=== PATIENT | female | born 1945 | race Caucasian/White ===

== ENCOUNTER → 2020-09-15 10:21 | Outpatient (CLI) | payer MEDICARE, SELFPAY ==
--- NOTE | ~2020-09-15 | DEXA_ITS ---
Bone Density Report Name: Moira Cordoba Age: 75 Sex: Female Ethnicity: White Date of : 1945 Indication: monitoring treatment; height loss; history of glucocorticoids; postmenopausal Referring Provider: Rafa, Shruthi Galvan Study: Bone densitometry was performed. Exam Date: September 15, 2020 Accession number: [id number] Bone Density: Region BMD T-score Z-score Classification AP Spine (L1, L2) 1.689 6.5 8.7 Normal Femoral Neck (Left) 0.895 0.4 2.5 Normal Total Hip (Left) 1.151 1.7 3.5 Normal Femoral Neck (Right) 0.912 0.6 2.6 Normal Total Hip (Right) 1.226 2.3 4.1 Normal Total Hip Mean 1.189 2.0 3.8 Normal World Health Organization criteria for BMD impression classify patients as: Normal (T-score at or above -1.0), Osteopenia (T-score between -1.0 and -2.5), or Osteoporosis (T-score at or below -2.5). 10-year Fracture Risk: FRAX not reported because: All T-scores for Spine Total, Hip Total, Femoral Neck at or above -1.0 Treated for osteoporosis Previous Exams: Region Exam Age BMD T-score BMD Change BMD Change Date g/cm2 vs Baseline vs Previous AP Spine(L1, L2) 09/15/2020 75 1.689 6.5 0.462 0.215* 12/23/2014 69 1.474 4.5 0.246 0.246 05/03/2005 60 1.227 2.3 Total Hip(Left) 09/15/2020 75 1.151 1.7 -0.124 -0.027 12/23/2014 69 1.178 1.9 -0.097 -0.097 05/03/2005 60 1.275 2.7 Total Hip(Right) 09/15/2020 75 1.226 2.3 -0.047 -0.008 12/23/2014 69 1.234 2.4 -0.040 -0.040 05/03/2005 60 1.273 2.7 *Denotes significance at 95% confidence level, LSC for AP Spine = 0.022 g/cm2, LSC for Total Hip = 0.027 g/cm2 Clinical Information Provided by Patient: Has taken Glucocorticoids Is being treated for osteoporosis Has used the following medications: HRT (i.e. estrogen/hormone therapy), Vitamin D, Calcium, MTV, prednisone in the past Patient maximum height was 64 Menopause Age: 34 No regular weight bearing exercise Drinks caffeinated beverages Onset of menses at age 12 Number of children 3 Impression: The patient has normal bone mass. The patient has risk factors, including: history of glucocorticoid therapy. No significant bone loss was observed. Discussion: PATIENT UNDER TREATMENT WITH NO SIGNIFICANT BMD LOSS SINCE LAST EXAM. In an untreated patient, BMD typically declines with age. Anil alfaro
== END ==
PROVIDERS: PCP Internal Medicine; Visit Provider Internal Medicine
DX: Z78.0 Asymptomatic menopausal state (principal)
CPT/HCPCS: 77080

== ENCOUNTER → 2021-03-30 11:51 | Outpatient (CLI) | payer MEDICARE, SELFPAY ==
--- NOTE | ~2021-03-30 | MR_ITS ---
EXAMINATION: MR cervical spine wo/w con EXAM DATE: 03/30/2021 13:11 INDICATION: Headache, unspecified, Muscle weakness (generalized) headache, muscle weakness. Right-glenroy ed headache, left arm numbness. TECHNIQUE: Multi-sequential, multiplanar MR images of the cervical spine were obtained without contra st. Axial T2, axial T2 MERGE sequence. Sagittal T1, T2, T2 fat saturation images also obtained. Axi al T1 weighted sequence. Patient was then injected with 13 mL Multihance intravenous contrast and re imaged. Postcontrast axial and sagittal T1-weighted fat saturation sequences were obtained. There ar e no prior studies for comparison. FINDINGS: There appears be a soft tissue lipoma along the posterior aspect of the right parotid glan d, following fat signal intensity on all pulse sequences. There is mild to moderate disc disease from C4 through C7. The vertebral bodies are aligned in the AP dimension. The spinal cord signal intensit y and intrinsic morphology is normal. Cervicomedullary junction is normal in appearance. Level by level evaluation: C2-C3: Disc does not extend beyond the endplate margin. Uncovertebral joint arthropathy: None. Facet joint arthropathy: Moderate left, mild to moderate right. Neural foraminal stenosis: No stenosis. Central canal stenosis: No stenosis. C3-C4: Disc does not extend beyond the endplate margin. Uncovertebral joint arthropathy: Mild to moderate left, mild right. Facet joint arthropathy: Moderate to severe left, moderate right. Neural foraminal stenosis: Mild to moderate left. Central canal stenosis: No stenosis. C4-C5: There is a mild diffuse disc bulge. Uncovertebral joint arthropathy: Moderate bilateral. Facet joint arthropathy: Moderate to severe left, moderate right. Neural foraminal stenosis: Moderate right, mild to moderate left. Central canal stenosis: Mild. C5-C6: There is a mild diffuse disc bulge. Uncovertebral joint arthropathy: Moderate to severe left, moderate right. Facet joint arthropathy: Moderate bilateral. Neural foraminal stenosis: Moderate to severe left, mild to moderate right. Central canal stenosis: Mild. C6-C7: There is a mild diffuse disc bulge. Uncovertebral joint arthropathy: Moderate to severe left, moderate right. Facet joint arthropathy: Moderate bilateral. Neural foraminal stenosis: Moderate bilateral. Central canal stenosis: Mild. C7-T1: Disc does not extend beyond the endplate margin. Uncovertebral joint arthropathy: Mild to moderate. Facet joint arthropathy: Moderate to severe right, mild left. Neural foraminal stenosis: No stenosis. Central canal stenosis: No stenosis. IMPRESSION: Mid cervical predominant neural foraminal stenosis as detailed above. Reviewed, dictated and finalized at location B. IMPRESSION: Mid cervical predominant neural foraminal stenosis as detailed nancy anderson
--- NOTE | ~2021-03-30 | MR_ITS ---
EXAMINATION: MR brain/brain stem wo/w con DATE: 03/30/2021 13:20 INDICATION: Headache, unspecified. Generalized muscle weakness. TECHNIQUE: Magnetic resonance imaging (MRI) of the brain and brainstem was performed without and with 13 mL MultiHance intravenous contrast. Sequences included sagittal and axial T1-weighted FSE, axial diffusion-weighted FS EPI, axial T2*-weighted GRE, axial T2-weighted FLAIR Propeller, and axial T2-we ighted Propeller. Postcontrast sequences included axial and coronal T1-weighted FSE. Apparent diffusi on coefficient (ADC) maps were created. COMPARISON: None. FINDINGS: There is an empty sella . There is no intracranial hemorrhage, acute infarction, or abnorm al intracranial mass lesion. There are scattered areas of nonspecific increased T2-weighted signal in tensity in the cerebral white matter and kathy, which is within normal limits for the patient's age. 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 The ventricles are normal in size. The re is mild mucosal thickening in the paranasal sinuses. There are likely changes of ocular lens repla cement surgeries. The mastoid air cells are normal. There is a lipoma posterior to right parotid glan d. IMPRESSION: 1. No specific etiology for the patient's symptoms. Reviewed, dictated and finalized at location A.
[2021-03-30 12:25] LABS: Estimated Glomerular Filt Rate 54
== END ==
PROVIDERS: PCP Internal Medicine; Visit Provider Internal Medicine
DX: R51.9 Headache, unspecified (principal); M62.81 Muscle weakness (generalized)
CPT/HCPCS: 70553; 72156; A9577

== ENCOUNTER → 2021-10-24 12:04 | Outpatient (CLI) | payer MEDICARE, SELFPAY ==
--- NOTE | ~2021-10-24 | MR_ITS ---
EXAMINATION: MR lumbar spine wo con DATE: 10/24/2021 12:54 INDICATION: Severe low back pain. TECHNIQUE: Magnetic resonance imaging (MRI) of the lumbar spine was performed without intravenous con trast. Sequences included sagittal T2-weighted FSE, sagittal T2-weighted FS FSE, sagittal T1-weighted FSE, and axial T2-weighted FSE. COMPARISON: CT abdomen and pelvis 11/29/2015 FINDINGS: There is 7 degrees dextrocurvature of lumbar spine. There is 3 mm retrolisthesis of T12 on L1, L1 on L2, L3 on L4, L4 on L5, and L5 on S1. Vertebral body heights are normal. There is severely decreased disc height from T9-T10 through L5-S1 with endplate remodeling. The distal spinal cord sign al intensity is normal. The conus medullaris is at L1-L2. 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 The following disc levels are specifically discussed: L1-L2: The disc is bulging. There is mild bilateral facet joint osteoarthritis. There is mild bilater al neural foraminal stenosis. There is mild central canal stenosis. L2-L3: The disc is bulging. There is severe right and mild left facet joint osteoarthritis. There is mild bilateral neural foraminal stenosis. There is mild central canal stenosis. L3-L4: The disc is bulging. There is severe bilateral facet joint osteoarthritis. There is mild right and moderate left neural foraminal stenosis. There is mild central canal stenosis. L4-L5: The disc is bulging. There is moderate right and mild left facet joint osteoarthritis. There i s moderate bilateral neural foraminal stenosis. There is mild central canal stenosis. L5-S1: The disc is bulging. There is mild bilateral facet joint osteoarthritis. There is moderate camron ateral neural foraminal stenosis. There is mild central canal stenosis. IMPRESSION: 1. Severe lumbar spondylosis. Reviewed, dictated and finalized at location B.
== END ==
PROVIDERS: PCP Internal Medicine; Visit Provider Orthopaedic Surgery
DX: M79.89 Other specified soft tissue disorders (principal); M47.896 Other spondylosis, lumbar region
CPT/HCPCS: 72148

== ENCOUNTER 2021-11-21 01:46 | Day surgery (SDC) | payer MEDICARE, SELFPAY ==
[2021-11-12 10:19] VITALS: BMI 29.2
--- NOTE | 2021-11-20 17:32 | PM.HPGS ---
History of Present Illness History of Present Illness Consent: Risks, benefits, and alternatives have been discussed and questions answered. Patient agrees to proceed with procedure. Chief complaint: hx of colon polyps Narrative: Moira Cordoba is a 76 year old female Who is here for colon cancer screening. She has a history of polyps. She had 2 adenomas removed about 6 years ago. Review of Systems Review of Systems: All systems reviewed & are unremarkable except as noted in HPI and below PMFSH Social History Social History Smoking status: Never smoker Alcohol intake: current Alcohol use details: 3 drinks monthly Living arrangements: with family Spiritual care concerns: No Meds Home Medications and Allergies Home Medications Medication Instructions Recorded Confirmed Type alprazolam 0.25 mg PO BID PRN 11/12/21 11/12/21 History amlodipine 2.5 mg PO DAILY 11/12/21 11/12/21 History ascorbic acid (vitamin C) 500 mg PO DAILY 11/12/21 11/12/21 History buspirone 5 mg PO BID 11/12/21 11/12/21 History calcium 2,000 mg PO DAILY 11/12/21 11/12/21 History duloxetine 60 mg PO DAILY 11/12/21 11/12/21 History estradiol 1 mg PO DAILY 11/12/21 11/12/21 History hydrocodone-acetaminophen 1 - 2 tablet PO Q6H PRN 11/12/21 11/12/21 History losartan 100 mg PO DAILY 11/12/21 11/12/21 History orozllxk-lum-gdhl-vitamin K [Adult 1 tablet PO DAILY 11/12/21 11/12/21 History Multivitamin with Iron] prasterone (dhea) [DHEA] 50 mg PO DAILY 11/12/21 11/12/21 History vitamin B complex [B Complex] 1 cap PO DAILY 11/12/21 11/12/21 History zinc 50 mg PO DAILY 11/12/21 11/12/21 History zolpidem 5 mg PO HS 11/12/21 11/12/21 History Allergies Allergy/AdvReac Type Severity Reaction Status Date / Time Sulfa (Sulfonamide Allergy Unknown Anaphylactic Verified 11/21/21 07:41 Antibiotics) Shock Exam Const: General: alert Orientation/consciousness: patient oriented x3 Resp: Auscultation: clear to auscultation bilaterally Cardio: Rhythm: regular rhythm GI: GI Palp: Yes Soft to palpation and No Tenderness to palpation present (GI) Neuro: General: patient oriented x3 Assessment and Plan Assessment and plan (1) Colon cancer screening: Code(s): Z12.11 - Encounter for screening for malignant neoplasm of colon Status: Acute Assessment and Plan: Colonoscopy with possible biopsy or polypectomy or cautery or injection of substances.
[2021-11-21 07:42] VITALS: BP 160/75; PULSE 83; RESP 18; TEMP 36.3; O2SAT 100; BMI 28.4
[2021-11-21] MEDS: LACTATED RINGERS 1,000 ML 150 ML IV CONT (07:56)
--- NOTE | 2021-11-21 08:35 | WPDANESEPPF ---
Anes - Initial Pre Proc Eval Procedure: Operation Date: 11/21/21 09:00 Proposed Procedures p Screening Colonoscopy - Howie Junior MD Date/Time: 11/21/21 08:35 Surgeon: Howie Junior MD Pre Op Diagnosis: hx of colon polyps Patient Data Age: 76 Gender: F Height: 1.52 m Weight: 66 kg Last Vital Signs Temp 97.3 F L 11/21/21 07:42 Pulse 83 11/21/21 07:42 Resp 18 11/21/21 07:42 BP 160/75 H 11/21/21 07:42 Pulse Ox 100 11/21/21 07:42 Allergies Allergy/AdvReac Type Severity Reaction Status Date / Time Sulfa (Sulfonamide Allergy Unknown Anaphylactic Verified 11/21/21 07:41 Antibiotics) Shock Home Medications Medication Instructions Recorded Confirmed Type alprazolam 0.25 mg PO BID PRN 11/12/21 11/12/21 History amlodipine 2.5 mg PO DAILY 11/12/21 11/12/21 History ascorbic acid (vitamin C) 500 mg PO DAILY 11/12/21 11/12/21 History buspirone 5 mg PO BID 11/12/21 11/12/21 History calcium 2,000 mg PO DAILY 11/12/21 11/12/21 History duloxetine 60 mg PO DAILY 11/12/21 11/12/21 History estradiol 1 mg PO DAILY 11/12/21 11/12/21 History hydrocodone-acetaminophen 1 - 2 tablet PO Q6H PRN 11/12/21 11/12/21 History losartan 100 mg PO DAILY 11/12/21 11/12/21 History ieyntkht-hej-dzom-vitamin K [Adult 1 tablet PO DAILY 11/12/21 11/12/21 History Multivitamin with Iron] prasterone (dhea) [DHEA] 50 mg PO DAILY 11/12/21 11/12/21 History vitamin B complex [B Complex] 1 cap PO DAILY 11/12/21 11/12/21 History zinc 50 mg PO DAILY 11/12/21 11/12/21 History zolpidem 5 mg PO HS 11/12/21 11/12/21 History Patient hx anesthesia problems: none Family hx anesthesia problems: none Results Review: All pre-operative results and documents have been reviewed as part of the pre-operative evaluation. PMFSH Social History Social History Smoking status: Never smoker Alcohol intake: current Alcohol use details: 3 drinks monthly Living arrangements: with family Spiritual care concerns: No Anes - Eval Final PreProcedure Day of Procedure 11/21/21 08:35 Patient weight: normal Heart: regular rate and rhythm Lungs: clear to auscultation Airway: Mallampati scale class II Neurological: alert and oriented Last oral intake: >/= 8 hours ASA classification: III Emergent: no Anesthetic plan: proceed Anesthesia type and monitoring: general GIVS and standard monitoring Results Review: All pre-operative results and documents have been reviewed as part of the pre-operative evaluation. Informed Consent: The patient's anesthetic plan and its attendant risks and benefits were discussed with the patient/family/POA. Questions were solicited and answers provided to the satisfaction of the patient/family/POA.
[2021-11-21] MEDS: SIMETHICONE ORAL SUSPENSION 20 MG/0.3 ML 30 ML BOTTLE 0.6 ML IRRIGATION (08:58)
[2021-11-21 09:14] VITALS: BP 134/73; PULSE 64; RESP 18; O2SAT 93
[2021-11-21 09:24] VITALS: BP 149/73; PULSE 58; RESP 16; O2SAT 95
[2021-11-21 09:34] VITALS: BP 161/84; PULSE 62; RESP 16; O2SAT 95
== END 2021-11-21 09:46 | disposition home or self-care (01) ==
PROVIDERS: PCP Internal Medicine; Visit Provider Internal Medicine Gastroenterology
PROC: 0DJD8ZZ Inspection of Lower Intestinal Tract, Via Natural or Artificial Opening Endoscopic (ICD-10-PCS; CPT 45378; principal; 2021-11-21 09:00)
DX: Z12.11 Encounter for screening for malignant neoplasm of colon (principal); K57.30 Diverticulosis of large intestine without perforation or abscess without bleeding; D12.2 Benign neoplasm of ascending colon; D12.4 Benign neoplasm of descending colon; Z80.0 Family history of malignant neoplasm of digestive organs
CPT/HCPCS: 45385; 88305; J2704; J7120

== ENCOUNTER 2024-08-13 08:46 | Outpatient (CLI) | payer MEDICARE, SELFPAY ==
--- NOTE | 2024-08-13 | ECHO_ITS ---
Patient Info Name: Moira Cordoba Age: 79 years : 1945 Gender: Female Ht: 60 in Wt: 143 lbs BSA: 1.68 m2 HR: 71 bpm BP: 161 / 84 mmHg Heart Rhythm: Sinus Rhythm Technical Quality: Good Exam Date: 08/13/2024 9:07 AM Exam Location: Echo Lab Patient Status: Outpatient Admit Date: 08/13/2024 Staff Ordering Physician: Rafa, Shruthi Galvan MD Heel Layer: Ellie Valentin RDCS Attending Provider: Rafa, Shruthi Galvan MD Referring Physician: Rafa ZHANG; Exam Type: CA echo doppler color flow Study Info Indications - Edema Complete two-dimensional, color flow and Doppler transthoracic echocardiogram is performed. Summary 1. Complete two-dimensional, color flow and Doppler transthoracic echocardiogram is performed. 2. Left ventricular chamber dimension is normal. 3. Left ventricular systolic function is normal, estimated at 65-70%. 4. The left ventricular diastolic function is abnormal. 5. E/e' 19 is elevated. 6. Left atrial chamber dimension is moderately enlarged. 7. There is mild to moderate mitral valve regurgitation. 8. There is mild tricuspid valve regurgitation. 9. Moderate pulmonary hypertension, estimated pulmonary arterial systolic pressure is 50 mmHg. Left Ventricle E/e' 19 is elevated. Left ventricular chamber dimension is normal. Left ventricular systolic function is normal, estimated at 65-70%. The left ventricular diastolic function is abnormal. Right Ventricle Right ventricular systolic function is normal and with normal TAPSE 2.5 cm. Right ventricular chamber dimension is normal. Left Atria Left atrial chamber dimension is moderately enlarged. Right Atria Right atrial chamber dimension is normal. Aortic Valve The aortic valve is trileaflet. There is no aortic valve stenosis. There is no aortic valve regurgitation. Pulmonic Valve There is no pulmonic regurgitation. Mitral Valve There is no mitral valve stenosis. There is mild to moderate mitral valve regurgitation. Tricuspid Valve There is mild tricuspid valve regurgitation. Moderate pulmonary hypertension, estimated pulmonary arterial systolic pressure is 50 mmHg. Pericardium/Pleural There is no pericardial effusion. Inferior Vena Cava Normal inferior vena cava with >50% collapse upon inspiration consistent with normal right atrial pressure, 5 mmHg. Aorta The aortic root size at the sinus of Valsalva is normal. Left Ventricular Outflow Tract Name Value Normal LVOT 2D LVOT Diameter 1.8 cm LVOT Doppler LVOT Peak Gradient 5 mmHg LVOT Mean Gradient 3 mmHg LVOT VTI 27 cm LVOT VTI/AV VTI Ratio 0.7 LVOT Stroke Volume 70 ml LVOT CO 4.4 l/min LVOT CI 2.6 l/min/m2 Pulmonic Valve Name Value Normal PV Doppler PV Peak Gradient 3 mmHg Mitral Valve Name Value Normal MV Doppler MV Peak Gradient 9 mmHg MV Mean Gradient 3 mmHg MV Decel Jewell 581 cm/s2 MV PHT 66 ms MV Area (PHT) 3.3 cm2 4.0-5.0 MV Area (Cont Eq VTI) 1.5 cm2 MV Regurgitation Doppler MR Peak Gradient 96 mmHg MV Diastolic Function MV E Peak Velocity 132 cm/s MV A Peak Velocity 109 cm/s MV E/A 1.2 MV Decel Time 227 ms MV Annular TDI MV E/e' (Septal) 19.9 <=8.0 MV E/e' (Lateral) 19.1 <=8.0 MV E/e' (Average) 19.5 Tricuspid Valve Name Value Normal TV Regurgitation Doppler TR Peak Velocity 337 cm/s TR Peak Gradient 45 mmHg Estimated PAP/RSVP RA Pressure 5 mmHg <=5 PA Systolic Pressure 50 mmHg <36 RV Systolic Pressure 50 mmHg <36 Aortic Valve Name Value Normal AV Doppler AV Peak Velocity 165 cm/s AV Peak Gradient 11 mmHg AV Mean Gradient 6 mmHg AV VTI 38 cm AV Area (Cont Eq VTI) 1.9 cm2 >=3.0 AV Area (Cont Eq Jhon) 1.8 cm2 AV Regurgitation 2D LVOT Area 2.6 cm2 Ventricles Name Value Normal LV Dimensions 2D/MM IVS Diastolic Thickness (2D) 0.6 cm 0.6-1.0 LVID Diastole (2D) 4.8 cm 3.8-5.2 LVIW Diastolic Thickness (2D) 0.7 cm 0.6-0.9 LVID Systole (2D) 3.4 cm 2.2-3.5 LVOT Diameter 1.8 cm LV Mass (2D Cubed) 99.53 g 67.00-162.00 LV Mass Index (2D Cubed) 59 g/m2 43-95 Relative Wall Thickness (2D) 0.31 LV Fractional Shortening/Ejection Fraction 2D/MM LV Fractional Shortening (2D) 28 % 27-45 LV EF (2D Teicholz) 55 % 54-74 LV Diastolic Volume (4C MOD) 77 ml LV EF (4C MOD) 61 % LV Diastolic Volume (2C MOD) 70 ml LV EF (2C MOD) 61 % LV Diastolic Volume (BP MOD) 74 ml 46-106 LV Diastolic Volume Index (BP MOD) 44 ml/m2 29-61 LV Systolic Volume (BP MOD) 30 ml 14-42 LV Systolic Volume Index (BP MOD) 18 ml/m2 8-24 LV EF (BP MOD) 60 % 54-74 LV Diastolic Length (4C) 7.1 cm LV Systolic Length (4C) 5.8 cm LV Stroke Volume (4C MOD) 47 ml LV CO (BP MOD) 2.9 l/min LV CI (BP MOD) 1.7 l/min/m2 Atria Name Value Normal LA Dimensions LA Volume (4C A-L) 58 ml LA Volume (BP A-L) 67 ml RA Dimensions RA Area (4C) 16.2 cm2 <=18.0 Report Signatures
--- OUTSIDE RECORDS SUMMARY | 2024-08-13 08:58 | XMS_ITS | Data Portability ---
Author Organization [place] [facility], Main Office Address [address] [place] [address] Care Team Providers Care [employer]oles[employer] Merchant Name Role Phone ANJUM PINZON Primary Care Provider [phone] ANJUM PINZON Referring Provider Assessment Encounter Date Assessment Date Assessment LastModified by Organization Details LastModified Time 10/11/2022 10/11/2022 HPI: Patient returns. She is here for cortisone injections in both her knees. Last injections were in last year. Do very well for her. She has moderate medial compartment arthritis in both knees. Physical exam: 77-year-old female very alert pleasant. She has just minimal effusions in both knees. Range of motion is from 0-135 degrees bilaterally. Mild tenderness over both medial joint lines to palpation. No increased swelling in either lower extremity. No lateral joint line tenderness in either knee. ChloraPrep was used on skin 20 mg Kenalog and 3 cc of 0.5% ropivacaine was injected into both knees. Risk infection discussed. Impression: 77-year-old female who has moderate medial compartment osteoarthritis in both knees. She continues to good relief from injections from time to time. We will see her back as needed. Not available 10/11/2022 16:02:23 02/03/2023 02/03/2023 HPI: Patient returns. She is here for cortisone injections into both her knees. Last shots were little more than 3 months ago. They do work very well for her and she gets almost 3 months of good relief. She is a very active 77-year-old and wishes to continue with the injections this point. She does not wish to discuss any surgical options on her knees. Physical exam: 77-year-old female alert pleasant. She walks well without assistance. She has mild effusions in both knees. Range motion on the right is 5-130 on left it is 10-130. Mild tenderness over both medial joint lines to palpation. No increased swelling in either lower extremity. After ChloraPrep was used on skin 20 mg Kenalog and 3 cc of 0.5% ropivacaine was injected into both knees. Risk infection discussed. Impression: 77-year-old female has moderately severe medial compartment osteoarthritis in both knees. She continues get excellent relief from the injections. We will see her back in 3 months repeat injection Not available 02/03/2023 15:02:58 04/28/2023 04/28/2023 HPI: Patient returns. She is here for cortisone injection in both of her knees. Last shots were 3 months ago. She has moderately severe medial osteoarthritis in both knees. She got good relief up until about 2 weeks ago. She is getting ready to go on cruise and leaving later this week. She wished to have additional injections today. Physical exam: 78-year-old female very alert pleasant. She walks well. She has mild effusions in both knees. Range of motion is from 12-120 degrees bilaterally. Mild tenderness over both medial joint lines. After ChloraPrep was used on skin 20 mg Kenalog and 3 cc of 0.5% ropivacaine was injected into both knees. Risk infection discussed. Impression: 78-year-old female who has moderately severe medial compartment osteoarthritis in both knees. Shots continue to work well for her. We will see her 3 months. Not available 04/28/2023 15:17:01 08/01/2023 08/01/2023 HPI: Patient returns. She is here for cortisone injections into both of her knees. Last shot for about 4 months ago. She does get good relief. She has moderately severe medial compartment osteoarthritis of both knees. She wishes to continue with injections. Physical exam: Patient has mild effusions in both knees. Range of motion is from 0 135 bilaterally. Now her tenderness over the medial joint lines in both knees. No increased swelling in the extremity. that ChloraPrep was used on skin 20 mg Kenalog and 3 cc of 0.5% ropivacaine was injected into both knees. Impression: Patient has moderately severe medial compartment osteoarthritis in both knees. cortisone injections work well for her. We will see her back as needed. Not available 08/01/2023 16:12:20 10/30/2023 10/30/2023 The patient has moderately severe primary osteoarthritis both knees left worse than right as described. Under sterile conditions I injected both knee joints in the office today with 4 cc 0.5% bupivacaine and 20 mg of Kenalog each. The patient tolerated the procedures well. We will see her back as needed we can do this again in 3 months if necessary she voiced understanding agrees above plan she will continue with current conservative measures call for any further problems difficulties or questions. [email or web address] Not available 10/30/2023 14:25:16 Plan of Treatment Reminders Order Date Submit Date Provider Last Modified By Organization Details Last Modified Time Details Appointments None recorded. Lab None recorded. Referral None recorded. Procedures injection/a spiration joint/bursa (PROC) - in office procedure, administere d by provider 2022 023 In-Office Order, Internal Use Only DO Not Attach Compendium DO Not Attach Compendium, Do Not Delete/merge, [id number] 16:01:15 injection/a spiration joint/bursa (PROC) - in office procedure, administere d by provider 2022 023 [email or web address] In-Office Order, Internal Use Only DO Not Attach Compendium DO Not Attach Compendium, Do Not Delete/merge, [id number] 14:33:16 injection/a spiration joint/bursa (PROC) - in office procedure, administere d by provider 2022 023 [email or web address] In-Office Order, Internal Use Only DO Not Attach Compendium DO Not Attach Compendium, Do Not Delete/merge, [id number] 14:38:07 injection/a spiration joint/bursa (PROC) - in office procedure, administere d by provider 2023 024 In-Office Order, Internal Use Only DO Not Attach Compendium DO Not Attach Compendium, Do Not Delete/merge, [id number] 14:10:32 injection/a spiration joint/bursa (PROC) 2023 024 [email or web address] In-Office Order, Internal Use Only DO Not Attach Compendium DO Not Attach Compendium, Do Not Delete/merge, [id number] 13:52:57 Surgeries None recorded. Imaging XR, knee 2022 023 [email or web address] [facility] [place], [address], [place], [address], 19:19:34 Medication Orders Kenalog 10 mg/mL suspension for injection [email or web address] [facility], [address] [place], [place], [id number], 16:01:15 ropivacaine (PF) 5 mg/mL (0.5 %) injection solution [address] [facility]186, [address] [place], [place], [id number], 3 14:35:46 Kenalog 10 mg/mL suspension for injection [address] [facility]54467, [address] [place], [id number], 3 19:19:34 ropivacaine (PF) 5 mg/mL (0.5 %) injection solution [address] [facility]70757, [address] [place], [id number], 3 14:35:46 Kenalog 10 mg/mL suspension for injection [address] [facility]46475, [address] [place], [place], [id number], 3 17:10:31 ropivacaine (PF) 5 mg/mL (0.5 %) injection solution 2022 023 [email or web address] [facility] #98453, [address], [place], [place], [id number], 3 17:10:31 Kenalog 10 mg/mL suspension for injection [address] [facility]13518, [address], [place], [place], [id number], 4 16:25:06 ropivacaine (PF) 5 mg/mL (0.5 %) injection solution 2023 024 [email or web address]267, [address] [place], [place], [id number], 4 16:25:06 bupivacaine HCl 0.5 % (5 mg/mL) injection solution 2023 024 [email or web address] [facility] #39080, [address] [place], [place], [id number], 4 15:41:25 Kenalog 10 mg/mL suspension for injection 2023 024 [email or web address] [facility] #18772, [address], [place], [id number], 4 15:41:25 Patient TargetsNo targets recorded. Patient InstructionsNo instructions recorded. Reason for Referral None Reported. Results Created Date Observation Date Name Description Value Unit Range Abnormal Flag Note LastModifiedBy Organization Detail LastModifiedTime 02/04/20 23 XR, knee No observ ation record ed. [facility] [place] [address], [place], [address], 02/03/2023 15:01:49 Result Notes None recorded. Problems Name Problem SNOMED Code Status Onset Date Resolution Date Notes Provider Name and Address Organization Details Recorded Time Localized, primary osteoarthr itis of the ankle and/or foot 707144211 Active 2021 Not Available [facility] 3 08:08:43 Pain in lumbar spine 821827960 Active Not Available [facility] 3 08:08:43 Menopause present 954704927 Active Not Available [facility] 3 08:08:43 Enthesopat hy of hip region 32152276 Active Not Available [facility] 3 08:08:43 Localized osteoarthr osis 74305032 Active Not Available [facility] 3 08:08:43 Vitamin D deficiency 20865777 Active Not Available [facility] 3 08:08:43 Depressive disorder 90861229 Active Not Available [facility] 3 08:08:44 Arthritis 4741450 Active Not Available [facility] 3 08:08:44 Hypertensi ve disorder 14789435 Active Not Available [facility] 3 08:08:44 Osteoarthr itis 479830550 Active 2021 Not Available [facility] 3 08:08:44 Foot pain 51324670 Active Not Available [facility] 3 08:08:44 Dysuria 56893922 Active Not Available [facility] 3 08:08:44 Cough 52073783 Active Not Available [facility] 3 08:08:44 Hyperlipid emia 38933130 Active Not Available [facility] 3 08:08:44 Diarrhea 13046131 Active Not Available [facility] 3 08:08:44 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 Not Available [facility] 3 08:08:44 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 Not Available [facility] 3 08:08:44 Neck pain 49980040 Active Not Available [facility] 3 08:08:44 Pernicious anemia 83138935 Active Not Available [facility] 3 08:08:44 Fatigue 73018795 Active Not Available [facility] 3 08:08:45 Bilateral osteoarthr itis of knees 8658190763575 07 Active 2022 Suly Horton, RMA null, [facility] 3 14:31:31 Pain of bilateral knee joints 9426620748732 04 Active 2023 Melly Dilma [employer] APPRENTICE null, [facility] 4 13:51:10 Problem Notes None recorded. Procedures Surgical History None recorded. Imaging Results Imaging Date Name Status LastModified by Organiz ation Details LastModified Time 02/03/2023 XR, knee completed [facility] [place] [address], [place], [address], 02/03/2023 15:01:49 Procedure Notes None recorded. Medical Equipment None Reported. Allergies Allergen ID Allergen Name Allergen Category Reaction Reaction Severity Criticality Documentation Date Start Date Code Code System Note Provider Name and Address Organization Details Recorded Time Substance with sulfonami de structure and antibacte rial mechanism of action (substanc e) medicatio n anaphylax is Not available Not available 09/04/2022 [id number] SNOMED Not Available [facility] 3 08:13:35 Medications Name Sig Start Date Stop Date Status Note LastModified by Organization Details LastModified Time losartan 50 mg tablet TAKE 1 AND 1/2 TABLETS BY MOUTH EVERY DAY active Not Available Not Available No t Available buspirone 5 mg tablet TAKE 1 TABLET BY MOUTH TWICE DAILY 04/28 completed Not Available Not Available Not Available clindamyc in HCl 300 mg capsule TAKE 1 CAPSULE BY MOUTH EVERY 8 HOURS FOR 10 DAYS active Not Available Not Available No t Available Vivelle-D ot 0.1 mg/24 hr transderm al patch MARICARMEN 1 PATCH TWO TIMES A WEEK active Not Available Not Available No t Available hydrocodo ne 5 mg-acetam inophen 325 mg tablet TAKE 1 TO 2 TABLETS BY MOUTH DAILY NEEDED FOR PAIN active Not Available Not Available No t Available minocycli ne 100 mg capsule TAKE 1 CAPSULE BY MOUTH TWICE DAILY FOR 7 DAYS 04/28 completed Not Available Not Available Not Available DHEA 50 mg capsule Take by oral route. 2020 active Not Available Not Available Not Avai lable bupivacai ne HCl 0.5 % (5 mg/mL) injection solution Take 40 mg by injectio n route. 2023 active Not Available Not Available Not Avai lable clobetaso l 0.05 % topical cream APPLY AND RUB IN WELL TO INVOLVED AREAS OF RIGHT HAND BID UNTIL CLEAR 12/19 completed Not Available Not Available Not Available oxycodone 5 mg/5 mL oral solution active Not Available Not Available Not Available diphenoxy late-atro pine 2.5 mg-0.025 mg tablet Take 2 tablets 4 times a day by oral route. 2020 active Not Available Not Available Not Avai lable amlodipin e 2.5 mg tablet TAKE 1 TABLET BY MOUTH EVERY DAY 04/28 completed Not Available Not Available Not Available amlodipin e 5 mg tablet TAKE 1 TABLET BY MOUTH EVERY DAY active Not Available Not Available No t Available tramadol 50 mg tablet TAKE 1 TABLET BY MOUTH EVERY 6 HOURS WITH FOOD NEEDED FOR PAIN 04/28 completed Not Available Not Available Not Available Guiatuss AC 10 mg-100 mg/5 mL oral liquid Take 5 mL every 4-6 hours by oral route as needed for 10 days. 10/04 completed Not Available Not Available Not Available alprazola m 0.25 mg tablet TAKE 1 TABLET BY MOUTH TWICE DAILY NEEDED FOR ANXIETY active Not Available Not Available No t Available prednisol one acetate 1 % eye drops,adrianne pension 12/19 completed Not Available Not Available Not Available estradiol 1 mg tablet TAKE 1 TABLET BY MOUTH DAILY active Not Available Not Available No t Available Kenalog 10 mg/mL suspensio n for injection Take 40 mg by injectio n route. 2023 active [facility]: [phone] 4-20 Not Available Not Available Not Available benzonata te 100 mg capsule TAKE 1 CAPSULE BY MOUTH EVERY 8 HOURS NEEDED active Not Available Not Available No t Available cyanocoba alexa (vit B-12) 1,000 mcg/mL injection solution INJECT 2 CC EVERY MONTH 12/19 completed Not Available Not Available Not Available triamcino lone acetonide 0.1 % topical ointment RUB IN WELL TWICE DAILY TO INVOLVED AREAS OF BODY UNTIL CLEAR 04/28 completed Not Available Not Available Not Available buspirone 10 mg tablet TAKE 1 TABLET BY MOUTH TWICE DAILY active Not Available Not Available No t Available lidocaine 5 % topical patch APPLY 1 PATCH DIRECTED EVERY DAY 12/19 completed Not Available Not Available Not Available omeprazol e 20 mg capsule,d elayed release TAKE 1 CAPSULE BY MOUTH EVERY DAY active Not Available Not Available No t Available hydroxyzi ne HCl 25 mg tablet Take 1 tablet 3 times a day by oral route. 2020 active Not Available Not Available Not Avai lable hydrocodo ne 5 mg-acetam inophen 500 mg tablet TAKE 1 TABLET BY MOUTH EVERY DAY NEEDED FOR BACK PAIN active Not Available Not Available No t Available mupirocin 2 % topical ointment 12/19 completed Not Available Not Available Not Available zolpidem 5 mg tablet TAKE 1 TABLET BY MOUTH EVERY DAY AT BEDTIME active Not Available Not Available No t Available gabapenti n 100 mg capsule TAKE 1 CAPSULE BY MOUTH THREE TIMES DAILY 04/28 completed Not Available Not Available Not Available estradiol 0.5 mg tablet TAKE 1/2 TABLET VAGINALL Y WEEKLY active Not Available Not Available No t Available ergocalci ferol (vitamin D2) 1,250 mcg (50,000 unit) capsule TK ONE C PO Q WEEK 12/19 completed Not Available Not Available Not Available clobetaso l 0.05 % topical ointment 12/19 completed Not Available Not Available Not Available estradiol 0.01% (0.1 mg/gram) vaginal cream INSERT 1 GRAM VAGINALL Y TWICE A WEEK AT BEDTIME 04/28 completed Not Available Not Available Not Available zolpidem 10 mg tablet TAKE 1 TABLET BY MOUTH EVERY DAY AT BEDTIME NEEDED active Not Available Not Available No t Available methylpre dnisolone 4 mg tablets in a dose pack FOLLOW PACKAGE DIRECTIO NS 04/28 completed Not Available Not Available Not Available albuterol sulfate HFA 90 mcg/actua tion aerosol inhaler INHALE 2 PUFFS BY MOUTH EVERY 4 HOURS NEEDED 04/28 completed Not Available Not Available Not Available ondansetr on 4 mg disintegr ating tablet active Not Available Not Available Not Available losartan 100 mg tablet TAKE 1 TABLET BY MOUTH EVERY DAY active Not Available Not Available No t Available amoxicill in 875 mg-potass ium clavulana te 125 mg tablet TAKE 1 TABLET BY MOUTH TWICE DAILY UNTIL GONE 04/28 completed Not Available Not Available Not Available Premarin 0.625 mg/gram vaginal cream apply prn 12/19 completed Not Available Not Available Not Available Premarin 0.625 mg tablet Take 1 tablet every day by oral route. 01/10 completed Not Available Not Available Not Available duloxetin e 60 mg capsule,d elayed release TAKE 1 CAPSULE BY MOUTH EVERY DAY active Not Available Not Available No t Available B Complex 2020 active Not Available Not Available Not Avai lable Daily Multivita min with Iron 2020 active Not Available Not Available Not Avai lable calcium citrate-v itamin D3 200 mg-200 unit tablet Take by oral route. 2020 active Not Available Not Available Not Avai lable lidocaine (PF) 10 mg/mL (1 %) injection solution In office injectio n administ ered by the provider 04/28 completed [facility]: 0409-427 12-21 Not Available Not Available Not Available lidocaine (PF) 20 mg/mL (2 %) injection solution In office injectio n administ ered by the provider 04/28 completed Not Available Not Available Not Available lidocaine (PF) 5 mg/mL (0.5 %) injection solution In office injectio n administ ered by the provider 04/28 completed Not Available Not Available Not Available BD Integra Syringe 3 mL 25 gauge x 1 U WITH B12 10/04 completed Not Available Not Available Not Available Zostavax (PF) 19,400 unit/0.65 mL subcutane ous suspensio n 12/19 completed Not Available Not Available Not Available hydrochlo rothiazid e 12.5 mg tablet TAKE 1 TABLET BY MOUTH EVERY DAY active Not Available Not Available No t Available ropivacai ne (PF) 5 mg/mL (0.5 %) injection solution in office 2023 active Not Available Not Available Not Avai lable lidocaine 5 % topical ointment Apply 1 applicat ion twice a day by topical route as directed for 30 days. active would rather have patches Not Available Not Available Not Available Fluvirin (PF) 45 mcg (15 mcg x 3)/0.5 mL intramusc ular syringe ADM 0.5ML IM UTD 04/28 completed Not Available Not Available Not Available Lagevrio 200 mg capsule (EUA) TAKE 4 CAPSULES BY MOUTH EVERY 12 HOURS FOR 5 DAYS 04/28 completed Not Available Not Available Not Available Miebo (PF) 100 % eye drops INSTILL ONE DROP INTO EACH EYE FOUR TIMES DAILY active Not Available Not Available No t Available Vitals Date Recorded Body height Provider Name an d Address Organization Details Last Updated DateTime 10/11/2022 152.4 [facility] [employer] [facility] 10/11/2022 14:48:57 Date Recorded Body height Body mass index (BMI) Body weight Provider Name and Address Organization Details Last Updated DateTime 02/03/2023 149.86 cm 30.5 kg/m2 55997.45 g Suly Clifford [facility] [employer] [facility] 02/03/2023 14:43:44 Date Recorded Body height Provider Name an d Address Organization Details Last Updated DateTime 04/28/2023 149.86 cm [facility] [employer] [facility] 04/28/2023 14:33:33 Date Recorded Body height Provider Name an d Address Organization Details Last Updated DateTime 08/01/2023 149.86 cm Suly Horton [facility] [employer] [facility] 08/01/2023 14:08:51 Date Recorded Body height Body mass index (BMI) Body weight Provider Name and Address Organization Details Last Updated DateTime 10/30/2023 144.78 cm 30.3 kg/m2 25128.93 g Melly Perera [facility] [employer] [facility] [employer] [facility] 10/30/2023 13:50:24 Social History Question Answer Notes LastModified by Organizat ion Details LastModified Time Tobacco Smoking Status Never Smoker Not Available [employer] 09/04/2022 08:06:11 What Is Your Level Of Alcohol Consumption? 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 Mental Status None recorded. Family History Relationship Description Onset Age of this Age Resolved Age Notes LastModified by Organization Details LastModified Time Father Family history of malignant neoplasm [id number] Not available 09/04/2022 08:06:19 Father Hypertensive disorder [id number] Not available 09/04/2022 08:06:19 Notes:mom's side arthritis Medical History Condition Response BLINDNESS N KIDNEY STONES N MRSA N CARPAL TUNNEL SYNDROME N LUNG DISEASE/DISORDER N HISTORY OF DRUG ABUSE N RADIATION / CHEMOTHERAPY N COPD N SPORTS INJURY N ANKLE PAIN N BLOOD DISEASES N SCHIZOPHRENIA N SHOULDER PAIN N DEPRESSION (INCLUDING POST ) N BOWEL PROBLEMS N STROKE/TIA N ULCERS N KNEE PAIN N BENIGN PROSTATIC HYPERPLASIA N OBESITY N GERD/NAUSEA N ANEURYSM N URINARY/BLADDER/KIDNEY PROBLEMS N CORONARY ARTERY DISEASE (CAD) N ADDICTION CONCERNS N USE OF BLOOD THINNERS N SKIN PROBLEMS N EMPHYSEMA N MUSCLE,JOINT OR BONE PROBLEMS N DVT N STOMACH ULCERS N BLOOD CLOTS N USE OF NSAIDS Y CONCUSSION OR SPINAL TRAUMA N NEUROPATHY N AIDS/HIV N FRACTURES N HYPERTENSION Y ELBOW PAIN N TOURETTE'S N Metal allergy N ANXIETY DISORDER N BLOOD TRANSFUSION N ANEMIA/BLOOD DISORDER N BIPOLAR DISORDER N BRONCHITIS N OSTEOARTHRITIS N TUBERCULOSIS N FOOT PROBLEM N HEART VALVE DISORDERS N SOFT TISSUE INJURY N ALLERGIES/HAYFEVER N INFECTIOUS DISEASE N HEART ARRHYTHMIA N INSOMNIA N RHEUMATOID ARTHRITIS N HIGH CHOLESTEROL / HYPERLIPIDEMIA N EDEMA N CHRONIC PAIN SYNDROME N CAROTID BLOCKAGE N BACK / NECK PROBLEMS N HAVE YOU BEEN HOSPITALIZED OR SEEN IN [facility] IN THE PAST YEAR ? N BURSITIS N HERNIATED DISC N DIALYSIS N FIBROMYALGIA N OSTEOPOROSIS N ARTHRITIS Y NO SIGNIFICANT PAST MEDICAL HISTORY N PERIPHERAL NEUROPATHY N DIABETES, TYPE N HEARTBURN / REFLUX N HEPATITIS / LIVER DISEASE N GOUT N SLEEP DISORDER N ALZHEIMER'S DISEASE N HERPES N SEIZURES/EPILEPSY N HEADACHES/MIGRAINES N VASCULAR DISEASE N HIP PAIN N Blood Disorder N DIZZINESS N HEAD TRAUMA OR INJURY N HEART DISEASE/HEART PROBLEMS N MULTIPLE SCLEROSIS N CARDIAC ARRHYTHMIA N CANCER: SPECIFY Y ANESTHESIA COMPLICATIONS N ATRIAL FIBRILLATION N AUTOIMMUNE DISEASE N Gynecological HistoryNo gynecological history recorded. Obstetrics History GPAL:G 0 P 0 0 0 0 Immunizations Vaccine Type Date Status Note Provider Nam e and Address Organization Details Recorded Time pneumococcal, unspecified formulation 1 completed Not Available [facility] 09/04/2022 08:13:30 Influenza, high-dose, trivalent, PF 5 completed Not Available [facility] 09/04/2022 08:13:31 Influenza, split virus, trivalent, preservative 4 completed Not Available [facility] 09/04/2022 08:13:31 Influenza, split virus, trivalent, preservative 3 completed Not Available [facility] 09/04/2022 08:13:31 Past Encounters Encounter ID Performer Location Encounter Start Date Encounter Closed Date Diagnosis/Indication Diagnosis SNOMED-CT Code Diagnosis ICD10 Code Diagnosis Note [id number] _ATHENA_M IGRATION_ DEFAULT_1 _1 , 09/28/2020 00:00:00 09/28/2020 11:03:13 [id number] [facility] [place] [address] [place] [address] 01/10/2021 00:00:00 01/10/2021 11:18:34 [id number] [facility] [place] [address] [place] [address] 04/11/2021 00:00:00 04/11/2021 10:45:28 [id number] [facility] [place] [address] [place] [address] 07/18/2021 00:00:00 07/18/2021 14:34:52 [id number] [facility] [place] [address] [place] [address] 10/17/2021 00:00:00 10/17/2021 14:56:50 [id number] [facility] [place] [address] [place] [address] 10/22/2021 00:00:00 10/22/2021 11:47:19 [id number] [facility] [place] [address] [place] [address] 01/18/2022 00:00:00 01/18/2022 15:07:14 [id number] [facility] [address] [place] [address] 04/24/2022 00:00:00 04/24/2022 15:37:44 [id number] ASHLEY Leija [facility] [address] [place] [address] 10/11/2022 14:46:06 10/11/2022 16:16:49 Osteoarthritis [id number] M17.0 [id number] ASHLEY Leija [facility] [address] [place] [address] 02/03/2023 14:19:53 02/03/2023 15:10:38 Bilateral osteoarthritis of knees [id number] M17.0 [id number] Flip Block PA [facility] [address] [place] [address] 04/28/2023 14:04:33 04/28/2023 15:34:54 Bilateral osteoarthritis of knees [id number] M17.0 [id number] ASHLEY Leija [facility] [address] [place] [address] 08/01/2023 13:59:50 08/01/2023 16:21:55 Bilateral osteoarthritis of knees [id number] M17.0 [id number] ASHLEY Nichols [facility] [address] [place] [address] 10/30/2023 13:46:13 10/30/2023 14:34:15 Bilateral osteoarthritis of knees [id number] 75839 M17.0 Pain of bi lateral knee joints [id number] 92644 M25.561 M25.562 Health Concerns Section Related Observation LastModified by Organization Detai ls LastModified Time None Recorded Concern Status LastModified by Organization Details LastModified Time None Recorded Advance Directives Directive None Recorded Payers Encounter Date Sequence Insurance Name Policy Number Policy Centeno Covered Member ID Cenetno Member ID Guarantor Name 10/11/2022 1 [place] Moira Cordoba [id number] Moira Cordoba 10/11/2022 2 [place] [id number] Moira enriquez [id number] Moira Cordoba 02/03/2023 [place] Cordoba [id number] Moira Cordoba 02/03/2023 2 [place] [id number] Moira enriquez [id number] Moira Cordoba 04/28/2023 1 [place] Moira Cordoba [id number] Moira Cordoba 04/28/2023 2 [place] [id number] Moira enriquez [id number] Moira Cordoba 08/01/2023 1 [place] Moira Cordoba [id number] Moira Cordoba 08/01/2023 2 [place] [id number] Moira enriquez [id number] Moira Cordoba 10/30/2023 1 [place] Moira Cordoba [id number] Moira Cordoba 10/30/2023 2 [place] [id number] Moira enriquez [id number] Moira Cordoba Notes Date Note Type Note Provider Name and Address Organization Details Recorded Time 10/30/2023 text/html Patient returns with bilateral knee pain she comes in every few months for cortisone injections. She has moderately severe primary osteoarthritis in the medial and patellofemoral compartments. This is noted on previous x-ray. She states shot of cortisone gave her pretty good relief she has not interested in total knee arthroplasty quite yet. It has been 3 months since her last injections denies any new trauma injury no new symptoms or complaints she would like both knees injected again today. ASHLEY Nichols [address] [facility], [facility] [address], [place], [address], [facility] 10/30/2023 14:25:29 OBGyn Episode No OBEpisode recorded.
--- OUTSIDE RECORDS SUMMARY | 2024-08-13 08:58 | XMS_ITS | Clinical Summary ---
Author Organization [facility] Address [address] [place] [address] Care Team Providers Care Trademark Affixer Name Role Phone Shruthi Craig MD Primary Care Provider [phone] Source Comments [facility],non-owned Affiliates and Associated Physician Practices is amultiple site organization consisting of ambulatory clinics and hospital sitesin [place], [place], [place] and [place]. This disclosure is being madepursuant to the Care Everywhere program and may not contain all information available regarding this patient. Last updated 18.[facility] Allergies Active Allergy Reactions Criticality Noted Date Comments Sulfa Drugs Anaphylaxis High 06/25/2022 Medications * Be aware that medications may not be up to date on this document. Alwaysverify current medications with the patient. Medication Sig Dispensed Refills Start Date End Date Status ALPRAZolam (XANAX) 0.25 MG tablet Take 1 (one) tablet by mouth once daily USES PRN 03/11/2019 Active busPIRone (BUSPAR) 5 MG tablet Take 1 (one) tablet by mouth 2 times daily 07/31/2019 Active DULoxetine (CYMBALTA) 60 MG capsule Take 1 (one) capsule by mouth once daily 07/17/2019 Active zolpidem (AMBIEN) 5 MG tablet Take 1 (one) tablet by mouth nightly as needed 06/07/2019 Active cyanocobalamin (VITAMIN B-12) injection Inject into muscle every 30 days Active losartan (COZAAR) 100 MG tablet Take 1 (one) tablet by mouth once daily 11/05/2021 Active amLODIPine (Norvasc) 5 MG tablet Take 1 (one) tablet by mouth once daily 10/29/2021 Active hydroCHLOROthia zide (Hydrodiuril) 12.5 MG Take 1 (one) tablet by mouth once daily Active loperamide (Imodium) 2 MG capsule Take 1 (one) capsule by mouth once Active acetaminophen (Tylenol) 325 MG tablet Take 1 (one) tablet by mouth every 4 hours as needed for Fever or Pain Maximum allowable Acetaminophen amount = 4 Grams (4000 mg) / 24 hours. 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 Degeneration of lumbar intervertebral disc 06/07 Encounters Date Type Department Care Team Description 07/25/2024 Refill [facility] [address] [facility], [facility] [address] [place] [address] Richelle Bolton APRN-ANDRÉS Refill Request 05/24/2024 2:00 PM LUMBER HANDLER Office Visit [facility] - Otolaryngology [address] [place] [phone] Noel Burgess MD Nasal vestibulitis (Primary Dx); Impacted cerumen of right ear; Presbylarynges; Xerostomia; Sleep talking 05/24/2024 Travel from Last 3 Months Family History Medical History Relation Name Comments Cancer Father Cancer - Colon Maternal Grandmother Hypertension Mother Relation Name Status Comments Father Maternal Grandmother Mother Alive Social History Tobacco Use Types Packs/Day Years Used Date Smoking Tobacco: Never Smokeless Tobacco: Never Tobacco Cessation:Counseling Given: Not Answered Alcohol Use Standard Drinks/Week Comments Yes 0 (1 standard drink = 0.6 oz pur e alcohol) rare AUDIT-C Answer Date Recorded Q1: How often do you have a drink containing alcohol? Never 04/22/2024 Q2: How many drinks containi ng alcohol do you have on a typical day when you are drinking? Patient does not drink Q3: How often do you have si x or more drinks on one occasion? Never 04/22/2024 Overall Financial Resource Strain (CARDIA) Answe r Date Recorded How hard is it for you to pa y for the very basics like food, housing, medical care, and heating? Not hard at all 09/01/2023 PHQ-2 Answer Date Recorded Patient Health Questionnaire-2 Score 0 04/09/2024 [facility] - Occupational Stress Questionnaire Answer Date Recorded Do you feel stress - tense, restless, nervous, or anxious, or unable to sleep at night because your mind is troubled all the time - these days? Not at all 09/01/2023 Hunger Vital Sign Answer Date Recorded Within the past 12 months, y ou worried that your food would run out before you got the money to buy more. Never true 09/01/19 24 Within the past 12 months, t he food you bought just didn't last and you didn't have money to get more. Never true 09/01/2023 PRAPARE - Transportation Answer Date Re corded In the past 12 months, has l ack of transportation kept you from medical appointments or from getting medications? No 08/08 In the past 12 months, has l ack of transportation kept you from meetings, work, or from getting things needed for daily living? No 09/01/2023 Housing Stability Vital Sign Answer Hamzah e Recorded In the last 12 months, was t here a time when you were not able to pay the mortgage or rent on time? No 09/01/2023 In the last 12 months, how many places have you lived? 1 09/01/2023 In the last 12 months, was t here a time when you did not have a steady place to sleep or slept in a penitentiary (including now)? No 09/01/2023 Sex and Gender Information Value Date Recorded Sex Assigned at Female 01/22/2024 6:45 AM CDT Gender Identity Not on file Sexual Orientation Not on file Last Filed Vital Signs Vital Sign Reading Time Taken Comments Blood Pressure 111/52 05/24/2024 1:50 PM LUMBER HANDLER Pulse 85 05/24/2024 1:50 PM LUMBER HANDLER Temperature 36.8 C (98.3 F) 04/22/2024 11:20 AM CDT Respiratory Rate 18 04/22/2024 11:2 0 AM CDT Oxygen Saturation 100% 05/24/2024 1:50 PM LUMBER HANDLER Inhaled Oxygen Concentration - - Weight 61.1 kg (134 lb 12.8 oz) 05/24/2024 1:50 PM LUMBER HANDLER Height 149.9 cm (4' 11 ) 05/24/2024 1:50 PM LUMBER HANDLER Body Mass Index 27.23 05/24/2024 1:50 PM LUMBER HANDLER Plan of Treatment Upcoming Encounters Date Type Department Care Team (Late st Contact Info) Description 08/23/2024 1:00 PM LUMBER HANDLER Office Visit [facility] - Otolaryngology [address] [phone] [place] [address] [address] 09/01/2024 12:30 PM LUMBER HANDLER Office Visit [facility] Weight Management Services [address] [facility] [address] [place] [address] Richelle Bolton, OTR DRIVER-CARPET LOOM FIXER [address] [facility] [address] [place] [address] Health Maintenance Due Date Last Done Comments BONE DENSITY TESTING 1945 MEDICARE AWV 12 MONTHS 1945 HEPATITIS C SCREENING 02/16/1964 DTAP/TDAP/TD VACCINES (1 - Tdap) 1965 PNEUMOCOCCAL VACCINE 50+ (1 of 1 - PCV) 02/21/1996 ZOSTER VACCINE (1 of 2) 02/21/1996 Respiratory Syncytial Virus (RSV) Vaccine Pt: or over 60 yrs (1 - 1-dose 75+ series) 2021 COVID-19 VACCINE ( - 2023-2 5 season) 2024 INFLUENZA VACCINE (#1) 2024 5, 04/22/2014, 05/12/2013 DEPRESSION SCREENING 07/07/2024 04/09/2024 HEPATITIS B VACCINE Aged Out No longe r eligible based on patient's age to complete this topic HIB VACCINE Aged Out No longer eligi ble based on patient's age to complete this topic HPV VACCINE Aged Out No longer eligi ble based on patient's age to complete this topic MENINGOCOCCAL (Group B) VACCINE Aged Out No longer eligible b ased on patient's age to complete this topic MENINGOCOCCAL VACCINE Aged Out No jeri gail eligible based on patient's age to complete this topic Advance Directives * Full Code (Latest Code Status on File) Date Activated Date Inactivated Comments 09/01/2023 2:53 PM 09/02/2023 9:46 PM Care Teams Trademark Affixer Relationship Specialty Start Date End Date Shruthi Craig MD [address] [place] [id number] PCP - General 11/26/21
--- OUTSIDE RECORDS SUMMARY | 2024-08-13 08:58 | XMS_ITS | Patient Health Record ---
Author Organization [facility] Address [address] [facility] [address] [place] [address] Support Name Relationship Address Phone Moira Cordoba Guarantor Unknown [phone] Reason For Referral No Information Plan Of Treatment No Information
--- OUTSIDE RECORDS SUMMARY | 2024-08-13 08:58 | XMS_ITS | Patient Health Summary ---
Author Organization [facility] Address [address] [place] [address] Care Team Providers Care Abstract Clerk Name Role Phone Shruthi Craig MD Primary Care Provider [phone] Note from [facility],non-owned Affiliates and Associated Physician Practices is amultiple site organization consisting of ambulatory clinics and hospital sitesin [place], [place], [place] and [place]. This disclosure is being madepursuant to the Care Everywhere program and may not contain all information available regarding this patient. Last updated 18.[facility] Allergies * Sulfa Drugs(Anaphylaxis) -High Criticality Medications * Be aware that medications may not be up to date on this document. Alwaysverify current medications with the patient. * ALPRAZolam (XANAX) 0.25 MG tablet(Started 03/11/2019) Take 1 (one) tablet by mouth once daily USES PRN * busPIRone (BUSPAR) 5 MG tablet(Started 07/31/2019) Take 1 (one) tablet by mouth 2 times daily * DULoxetine (CYMBALTA) 60 MG capsule(Started 07/17/2019) Take 1 (one) capsule by mouth once daily * zolpidem (AMBIEN) 5 MG tablet(Started 06/07/2019) Take 1 (one) tablet by mouth nightly as needed * cyanocobalamin (VITAMIN B-12) injection Inject into muscle every 30 days * losartan (COZAAR) 100 MG tablet(Started 11/05/2021) Take 1 (one) tablet by mouth once daily * amLODIPine (Norvasc) 5 MG tablet(Started 10/29/2021) Take 1 (one) tablet by mouth once daily * hydroCHLOROthiazide (Hydrodiuril) 12.5 MG Take 1 (one) tablet by mouth once daily * loperamide (Imodium) 2 MG capsule Take 1 (one) capsule by mouth once * acetaminophen (Tylenol) 325 MG tablet Take 1 (one) tablet by mouth every 4 hours as needed for Fever or Pain Maximum allowable Acetaminophen amount = 4 Grams (4000 mg) / 24 hours. * omeprazole (PriLOSEC) 20 MG capsule(Started 07/26/2024) TAKE 1 CAPSULE BY MOUTH EVERY DAY Ended Medications* omeprazole (PriLOSEC) 20 MG capsule(Started 01/20/2024) (Discontinued) TAKE 1 CAPSULE BY MOUTH EVERY DAY 5 refills by 01/19/2025 Active Problems Problem Noted Date Diagnosed Date Cervical cancer 05/24/2024 Depressive disorder 05/24/2024 Foot pain 05/24/2024 Enthesopathy of hip region 05/24/2024 Iron deficiency 03/23/2024 Arthralgia of both knees 10/30/2023 Hiatal hernia 09/01/2023 Primary osteoarthritis of both knees 08/11/2019 Cobalamin deficiency 06/07/2015 Degeneration of lumbar intervertebral disc 06/07 Social History Tobacco Use Types Packs/Day Years [...] Recorded Patient Health Questionnaire-2 Score 0 04/09/2024 [facility] - Occupational Stress [...] place to sleep or slept in a assisted (including now)? No 09/01/2023 Sex and Gender Information Value Date Recorded Sex Assigned at Female 01/22/2024 6:45 AM CDT Gender Identity Not on file Sexual Orientation Not on file Last Filed Vital Signs Vital Sign Reading Time Taken Comments Blood Pressure 111/52 05/24/2024 1:50 PM DIRECTOR [employer]IC[employer] Pulse 85 05/24/2024 1:50 PM DIRECTOR [employer]ICOND[employer] Temperature 36.8 C (98.3 F) 04/22/2024 11:20 AM CDT Respiratory Rate 18 04/22/2024 11:2 0 AM CDT Oxygen Saturation 100% 05/24/2024 1:50 PM DIRECTOR SEMIC[employer] Inhaled Oxygen Concentration - - Weight 61.1 kg (134 lb 12.8 oz) 05/24/2024 1:50 PM DIRECTOR [employer]IC[employer] Height 149.9 cm (4' 11 ) 05/24/2024 1:50 PM DIRECTOR SEMIC[employer]CTOR Body Mass Index 27.23 05/24/2024 1:50 PM DIRECTOR SEMICOND[employer]CTOR Procedures * CULTURE STREP GROUP A(Performed 04/22/2024) * SARS-COV-2 (COVID-19) RAPID(Performed 04/22/2024) * STREP A SCREEN DIRECT W RFLX STREP A CULTURE(Performed 04/22/2024) * COMPREHENSIVE METABOLIC PANEL(Performed 04/22/2024) * CBC W AUTO DIFFERENTIAL(Performed 04/22/2024) * URINALYSIS REFLEX MICROSCOPIC REFLEX CULTURE(Performed 04/22/2024) * FL UGI SERIES(Performed 03/18/2024) Performed for Epigastric pain, Gastroesophageal reflux disease without esophagitis, Morbid obesity (HCC), Vitamin deficiency, Bariatric surgery status, Vitamin D deficiency, Postsurgical malabsorption (HCC) * VITAMIN D 25-HYDROXY(Performed 03/10/2024) Performed for Morbid obesity (HCC), Vitamin deficiency, Bariatric surgery status, Vitamin D deficiency, Postsurgical malabsorption (HCC) * IRON + TIBC PANEL(Performed 03/10/2024) Performed for Morbid obesity (HCC), Vitamin deficiency, Bariatric surgery status, Vitamin D deficiency, Postsurgical malabsorption (HCC) * FOLATE(Performed 03/10/2024) Performed for Morbid obesity (HCC), Vitamin deficiency, Bariatric surgery status, Vitamin D deficiency, Postsurgical malabsorption (HCC) * ZINC BLOOD(Performed 03/10/2024) Performed for Morbid obesity (HCC), Vitamin deficiency, Bariatric surgery status, Vitamin D deficiency, Postsurgical malabsorption (HCC) * VITAMIN K1(Performed 03/10/2024) Performed for Morbid obesity (HCC), Vitamin deficiency, Bariatric surgery status, Vitamin D deficiency, Postsurgical malabsorption (HCC) * VITAMIN E(Performed 03/10/2024) Performed for Morbid obesity (HCC), Vitamin deficiency, Bariatric surgery status, Vitamin D deficiency, Postsurgical malabsorption (HCC) * VITAMIN B12(Performed 03/10/2024) Performed for Morbid obesity (HCC), Vitamin deficiency, Bariatric surgery status, Vitamin D deficiency, Postsurgical malabsorption (HCC) * VITAMIN B1(Performed 03/10/2024) Performed for Morbid obesity (HCC), Vitamin deficiency, Bariatric surgery status, Vitamin D deficiency, Postsurgical malabsorption (HCC) * VITAMIN A(Performed 03/10/2024) Performed for Morbid obesity (HCC), Vitamin deficiency, Bariatric surgery status, Vitamin D deficiency, Postsurgical malabsorption (HCC) * PTH INTACT(Performed 03/10/2024) Performed for Morbid obesity (HCC), Vitamin deficiency, Bariatric surgery status, Vitamin D deficiency, Postsurgical malabsorption (HCC) * MAGNESIUM BLOOD(Performed 03/10/2024) Performed for Morbid obesity (HCC), Vitamin deficiency, Bariatric surgery status, Vitamin D deficiency, Postsurgical malabsorption (HCC) * FERRITIN(Performed 03/10/2024) Performed for Morbid obesity (HCC), Vitamin deficiency, Bariatric surgery status, Vitamin D deficiency, Postsurgical malabsorption (HCC) * COPPER BLOOD(Performed 03/10/2024) Performed for Morbid obesity (HCC), Vitamin deficiency, Bariatric surgery status, Vitamin D deficiency, Postsurgical malabsorption (HCC) * COMPREHENSIVE METABOLIC PANEL(Performed 03/10/2024) Performed for Morbid obesity (HCC), Vitamin deficiency, Bariatric surgery status, Vitamin D deficiency, Postsurgical malabsorption (HCC) * CBC W/O DIFFERENTIAL(Performed 03/10/2024) Performed for Morbid obesity (HCC), Vitamin deficiency, Bariatric surgery status, Vitamin D deficiency, Postsurgical malabsorption (HCC) * FL UGI SERIES(Performed 09/02/2023) Performed for Hiatal hernia * VITAMIN D 25-HYDROXY(Performed 09/02/2023) * CBC W AUTO DIFFERENTIAL(Performed 09/02/2023) * BASIC METABOLIC PANEL (CALCIUM TOTAL)(Performed 09/02/2023) * GLUCOSE - POINT OF CARE(Performed 09/01/2023) * GLUCOSE - POINT OF CARE(Performed 09/01/2023) * ENDOTRACHEAL TUBE NOTE(Performed 09/01/2023) * WA LAP,STOMACH,OTHER,W/O TUBE(Performed 09/01/2023) * BASIC METABOLIC PANEL (CALCIUM TOTAL)(Performed 09/01/2023) Performed for Pre-op evaluation * FL UGI SERIES(Performed 07/29/2023) Performed for Epigastric abdominal pain, Gastroesophageal reflux disease without esophagitis, Hiatal hernia * PATHOLOGY TISSUE EXAM (STL)(Performed 05/19/2023) Performed for Diagnosis unknown * ENDOTRACHEAL TUBE NOTE(Performed 05/19/2023) * WA ED EGD FLEX TRANSORAL DX(Performed 05/19/2023) * LAPAROSCOPIC REPAIR INTERNAL HERNIA(Performed 05/19/2023) * WA LAP,CHOLECYSTECTOMY(Performed 05/19/2023) * BASIC METABOLIC PANEL (CALCIUM TOTAL)(Performed 05/19/2023) Performed for Pre-op evaluation * EKG 12-LEAD(Performed 05/19/2023) Performed for Pre-op evaluation * US ABDOMEN LIMITED(Performed 04/08/2023) Performed for Abdominal pain, RUQ (right upper quadrant) * VITAMIN D 25-HYDROXY(Performed 03/20/2023) Performed for Abdominal pain, RUQ (right upper quadrant), H/O gastric bypass, Dietary counseling and surveillance, Vitamin deficiency, Postsurgical malabsorption (HCC), Weight loss, History of morbidobesity * IRON + TIBC PANEL(Performed 03/20/2023) Performed for Abdominal pain, RUQ (right upper quadrant), H/O gastric bypass, Dietary counseling and surveillance, Vitamin deficiency, Postsurgical malabsorption (HCC), Weight loss, History of morbidobesity * FOLATE(Performed 03/20/2023) Performed for Abdominal pain, RUQ (right upper quadrant), H/O gastric bypass, Dietary counseling and surveillance, Vitamin deficiency, Postsurgical malabsorption (HCC), Weight loss, History of morbidobesity * PTH INTACT(Performed 03/20/2023) Performed for Abdominal pain, RUQ (right upper quadrant), H/O gastric bypass, Dietary counseling and surveillance, Vitamin deficiency, Postsurgical malabsorption (HCC), Weight loss, History of morbidobesity * VITAMIN A(Performed 03/20/2023) Performed for Abdominal pain, RUQ (right upper quadrant), H/O gastric bypass, Dietary counseling and surveillance, Vitamin deficiency, Postsurgical malabsorption (HCC), Weight loss, History of morbidobesity * VITAMIN B1(Performed 03/20/2023) Performed for Abdominal pain, RUQ (right upper quadrant), H/O gastric bypass, Dietary counseling and surveillance, Vitamin deficiency, Postsurgical malabsorption (HCC), Weight loss, History of morbidobesity * VITAMIN B12(Performed 03/20/2023) Performed for Abdominal pain, RUQ (right upper quadrant), H/O gastric bypass, Dietary counseling and surveillance, Vitamin deficiency, Postsurgical malabsorption (HCC), Weight loss, History of morbidobesity * VITAMIN E(Performed 03/20/2023) Performed for Abdominal pain, RUQ (right upper quadrant), H/O gastric bypass, Dietary counseling and surveillance, Vitamin deficiency, Postsurgical malabsorption (HCC), Weight loss, History of morbidobesity * VITAMIN K1(Performed 03/20/2023) Performed for Abdominal pain, RUQ (right upper quadrant), H/O gastric bypass, Dietary counseling and surveillance, Vitamin deficiency, Postsurgical malabsorption (HCC), Weight loss, History of morbidobesity * ZINC BLOOD(Performed 03/20/2023) Performed for Abdominal pain, RUQ (right upper quadrant), H/O gastric bypass, Dietary counseling and surveillance, Vitamin deficiency, Postsurgical malabsorption (HCC), Weight loss, History of morbidobesity * PREALBUMIN(Performed 03/20/2023) Performed for Abdominal pain, RUQ (right upper quadrant), H/O gastric bypass, Dietary counseling and surveillance, Vitamin deficiency, Postsurgical malabsorption (HCC), Weight loss, History of morbidobesity * MAGNESIUM BLOOD(Performed 03/20/2023) Performed for Abdominal pain, RUQ (right upper quadrant), H/O gastric bypass, Dietary counseling and surveillance, Vitamin deficiency, Postsurgical malabsorption (HCC), Weight loss, History of morbidobesity * FERRITIN(Performed 03/20/2023) Performed for Abdominal pain, RUQ (right upper quadrant), H/O gastric bypass, Dietary counseling and surveillance, Vitamin deficiency, Postsurgical malabsorption (HCC), Weight loss, History of morbidobesity * COPPER BLOOD(Performed 03/20/2023) Performed for Abdominal pain, RUQ (right upper quadrant), H/O gastric bypass, Dietary counseling and surveillance, Vitamin deficiency, Postsurgical malabsorption (HCC), Weight loss, History of morbidobesity * COMPREHENSIVE METABOLIC PANEL(Performed 03/20/2023) Performed for Abdominal pain, RUQ (right upper quadrant), H/O gastric bypass, Dietary counseling and surveillance, Vitamin deficiency, Postsurgical malabsorption (HCC), Weight loss, History of morbidobesity * CBC W/O DIFFERENTIAL(Performed 03/20/2023) Performed for Abdominal pain, RUQ (right upper quadrant), H/O gastric bypass, Dietary counseling and surveillance, Vitamin deficiency, Postsurgical malabsorption (HCC), Weight loss, History of morbidobesity * LAB(Performed 11/20/2021) * VITAMIN A(Performed 11/14/2021) Performed for Bariatric surgery status, Vitamin deficiency, Vitamin D deficiency, Mineral deficiency, Vitamin B deficiency, Intestinal malabsorption, unspecified type (HCC) * VITAMIN B1(Performed 11/14/2021) Performed for Bariatric surgery status, Vitamin deficiency, Vitamin D deficiency, Mineral deficiency, Vitamin B deficiency, Intestinal malabsorption, unspecified type (HCC) * VITAMIN B12(Performed 11/14/2021) Performed for Bariatric surgery status, Vitamin deficiency, Vitamin D deficiency, Mineral deficiency, Vitamin B deficiency, Intestinal malabsorption, unspecified type (HCC) * VITAMIN D 25-HYDROXY(Performed 11/14/2021) Performed for Bariatric surgery status, Vitamin deficiency, Vitamin D deficiency, Mineral deficiency, Vitamin B deficiency, Intestinal malabsorption, unspecified type (HCC) * VITAMIN E(Performed 11/14/2021) Performed for Bariatric surgery status, Vitamin deficiency, Vitamin D deficiency, Mineral deficiency, Vitamin B deficiency, Intestinal malabsorption, unspecified type (HCC) * VITAMIN K1(Performed 11/14/2021) Performed for Bariatric surgery status, Vitamin deficiency, Vitamin D deficiency, Mineral deficiency, Vitamin B deficiency, Intestinal malabsorption, unspecified type (HCC) * ZINC BLOOD(Performed 11/14/2021) Performed for Bariatric surgery status, Vitamin deficiency, Vitamin D deficiency, Mineral deficiency, Vitamin B deficiency, Intestinal malabsorption, unspecified type (HCC) * PTH INTACT(Performed 11/14/2021) Performed for Bariatric surgery status, Vitamin deficiency, Vitamin D deficiency, Mineral deficiency, Vitamin B deficiency, Intestinal malabsorption, unspecified type (HCC) * PREALBUMIN(Performed 11/14/2021) Performed for Bariatric surgery status, Vitamin deficiency, Vitamin D deficiency, Mineral deficiency, Vitamin B deficiency, Intestinal malabsorption, unspecified type (HCC) * MAGNESIUM BLOOD(Performed 11/14/2021) Performed for Bariatric surgery status, Vitamin deficiency, Vitamin D deficiency, Mineral deficiency, Vitamin B deficiency, Intestinal malabsorption, unspecified type (HCC) * IRON BLOOD(Performed 11/14/2021) Performed for Bariatric surgery status, Vitamin deficiency, Vitamin D deficiency, Mineral deficiency, Vitamin B deficiency, Intestinal malabsorption, unspecified type (HCC) * FOLATE RBC(Performed 11/14/2021) Performed for Bariatric surgery status, Vitamin deficiency, Vitamin D deficiency, Mineral deficiency, Vitamin B deficiency, Intestinal malabsorption, unspecified type (HCC) * FERRITIN(Performed 11/14/2021) Performed for Bariatric surgery status, Vitamin deficiency, Vitamin D deficiency, Mineral deficiency, Vitamin B deficiency, Intestinal malabsorption, unspecified type (HCC) * COPPER BLOOD(Performed 11/14/2021) Performed for Bariatric surgery status, Vitamin deficiency, Vitamin D deficiency, Mineral deficiency, Vitamin B deficiency, Intestinal malabsorption, unspecified type (HCC) * COMPREHENSIVE METABOLIC PANEL(Performed 11/14/2021) Performed for Bariatric surgery status, Vitamin deficiency, Vitamin D deficiency, Mineral deficiency, Vitamin B deficiency, Intestinal malabsorption, unspecified type (HCC) * CBC W/O DIFFERENTIAL(Performed 11/14/2021) Performed for Bariatric surgery status, Vitamin deficiency, Vitamin D deficiency, Mineral deficiency, Vitamin B deficiency, Intestinal malabsorption, unspecified type (HCC) * XR KNEE BILAT 3VW(Performed 08/10/2019) Performed for Pain in both knees, unspecified chronicity Results * SARS-COV-2 (COVID-19) RAPID (04/22/2024 1:36 PM CDT) COVID-19 PCR Not detected Not detected 04/22/20 24 2:37 PM CDT [facility] Microbiology SPECIMEN FROM NASOPHARYNGEAL STRUCTURE / Unknown Collection / Unknown 04/22/2024 1:36 PM CDT 04/22/2024 1:57 PM CDT Narrative [facility] - 04/22/2024 2:37 PM CDT The Cepuberallid Xpert Xpress SARS-COV-2 has been authorized by the Food and Drug Administration (FDA) under an Emergency Use Authorization (EUA). This test has been validated in accordance with the FDA's guidance document Policy for Diagnostic Testing in Laboratories Certified to perform High Complexity Testing under CLIA prior to Emergency Use Authorization for Coronavirus Disease-2019 during the Public Health Emergency issued on September 04, 2019. FDA independent review of this validation is pending. This test is only authorized for the duration of the time the declaration that circumstances exist justifying the authorization of emergency use of in vitro diagnostic tests for detection of SARS-COV-2 virus and/or diagnosis of COVID-19 infection under 564(b) (1) of the Act. 21 U.S.C. 360bbb-3 (b) (1), unless the authorization is terminated or revoked sooner. Fact Sheets for this EUA assay are available upon request. Darnell Coleman MD LAB - MICROBIOLOGY O RDERAERA [facility] [address] [place] [address] * STREP A SCREEN DIRECT W RFLX STREP A CULTURE (04/22/2024 1:36 PM CDT) Pathologist [facility] Strep A Rapid Negative Negative 04/22/2024 2:11 PM CDT [facility] Microbiology ENTIRE THROAT (SURFACE REGION OF NECK) / Unknown Collection / Unknown 04/22/2024 1:36 PM CDT 04/22/2024 1:57 PM CDT Narrative [facility] - 04/22/2024 2:11 PM CDT Test has reflexed to a Strep A culture. Darnell Coleman MD LAB - MICROBIOLOGY O JAYA Performing Organization Address [facility] Co de Phone Number [facility] [address] [place], [place] [id number] * CULTURE STREP GROUP A (04/22/2024 1:36 PM CDT) [facility] Culture Negative for beta-hemolytic Streptococcus Group A WAN 04/23/2024 10:36 PM CDT [facility] MICROBIOLOGY Microbiology ENTIRE THROAT (SURFACE REGION OF NECK) / Unknown Collection / Unknown 04/22/2024 1:36 PM CDT 04/22/2024 1:57 PM CDT Darnell Coleman MD LAB - MICROBIOLOGY O JAYA Performing Organization Address [facility] Co de Phone Number [facility] MICROBIOLOGY [address] [place] [phone] * (ABNORMAL) CBC W AUTO DIFFERENTIAL (04/22/2024 12:27 PM CDT) Only the most recent of2 resultswithin the time period is included. Pathologist [facility] WBC 5.5 4.0 - 10.7 x10E9/L 04/22/2024 1:20 PM CDT [facility] RBC Count 3.73(L) 3.90 - 5.20 x10E12/L 04/22/2024 1:20 PM CDT [facility] Hemoglobin 11.2(L) 11.9 - 15.8 g/dL 04/22/2024 1:20 PM CDT [facility] Hematocrit 35.5 34.8 - 46.1 % 04/22/2024 1:20 PM CDT [facility] MCV 95.2 80.0 - 98.0 fL 04/22/2024 1:20 PM CDT [facility] MCH 30.0 26.7 - 33.6 pg 04/22/2024 1:20 PM CDT [facility] MCHC 31.5(L) 31.7 - 36.3 g/dL 04/22/2024 1:20 PM CDT [facility] RDW-CV 15.4(H) 11.3 - 14.8 % 04/22/2024 1:20 PM CDT [facility] Platelet Count 245 150 - 420 x10E9/L 04/22/2024 1:20 PM CDT [facility] MPV 11.9(H) 7.8 - 11.4 fL 04/22/2024 1:20 PM CDT [facility] Neutrophil % 59.9 41.0 - 74.0 % 04/22/2024 1:20 PM CDT [facility] Lymphocyte % 28.4 17.0 - 47.0 % 04/22/2024 1:20 PM CDT [facility] Monocyte % 8.3 3.0 - 11.0 % 04/22/2024 1:20 PM CDT [facility] Eosinophil % 2.5 0.0 - 7.0 % 04/22/2024 1:20 PM CDT [facility] Basophil % 0.5 0.0 - 1.6 % 04/22/2024 1:20 PM CDT [facility] Immature Granulocytes % 0.4 0.0 - 1.0 % 04/22/2024 1:20 PM CDT [facility] Neutrophil Absolute 3.31 1.60 - 7.50 x10E9/L 04/22/2024 1:20 PM CDT [facility] Lymphocyte Absolute 1.57 1.00 - 4.40 x10E9/L 04/22/2024 1:20 PM CDT [facility] Monocyte Absolute 0.46 0.15 - 1.00 x10E9/L 04/22/2024 1:20 PM CDT [facility] Eosinophil Absolute 0.14 0.00 - 0.60 x10E9/L 04/22/2024 1:20 PM CDT [facility] Basophil Absolute 0.03 0.00 - 0.13 x10E9/L 04/22/2024 1:20 PM CDT [facility] Blood BLOOD SPECIMEN / Unknown Venipuncture / Unknown 04/22/2024 12:27 PM CDT 04/22/2024 1:16 PM CDT Nancy Carroll PA-C LAB - HEMATOLOGY OR DERABLES [facility] [address] [place] [address] * (ABNORMAL) COMPREHENSIVE METABOLIC PANEL (04/22/2024 12:27 PM CDT) Only the most recent of4 resultswithin the time period is included. Glucose 83 70 - 99 mg/dL 04/22/2024 1:34 PM CDT [facility] Sodium 139 136 - 145 mmol/L 04/22/2024 1:34 PM CDT [facility] Potassium 4.7 3.5 - 5.1 mmol/L 04/22/2024 1:34 PM CDT [facility] Chloride 102 98 - 107 mmol/L 04/22/2024 1:34 PM CDT [facility] CO2 26 22 - 29 mmol/L 04/22/2024 1:34 PM CDT [facility] Calcium 9.7 8.4 - 10.4 mg/dL 04/22/2024 1:34 PM CDT [facility] Anion Gap 11 6 - 16 mmol/L 04/22/2024 1:34 PM CDT [facility] BUN 18 7 - 26 mg/dL 04/22/2024 1:34 PM CDT [facility] Creatinine 0.74 0.57 - 1.11 mg/dL 04/22/2024 1:34 PM CDT [facility] Alkaline Phosphatase 62 40 - 150 U/L 04/22/2024 1:34 PM CDT [facility] ALT 24 0 - 55 U/L 04/22/2024 1:34 PM CDT [facility] AST 36(H) 5 - 34 U/L 04/22/2024 1:34 PM CDT [facility] Protein Total 7.1 6.4 - 8.3 gm/dL 04/22/2024 1:34 PM CDT [facility] Albumin 3.9 3.4 - 5.0 gm/dL 04/22/2024 1:34 PM CDT [facility] Bilirubin Total 0.4 0.2 - 1.2 mg/dL 04/22/2024 1:34 PM CDT [facility] eGFR by CKD-EPI 83(L) >=90 mL/min/1.7 3 m2 04/22/2024 1:34 PM CDT [facility] Blood BLOOD SPECIMEN / Unknown Venipuncture / Unknown 04/22/2024 12:27 PM CDT 04/22/2024 1:16 PM CDT Nancy Carroll PA-C LAB - CHEMISTRY ORD ERABLES [facility] [address] [place] [address] * URINALYSIS REFLEX MICROSCOPIC REFLEX CULTURE (04/22/2024 12:21 PM CDT) Color UA Yellow Yellow, Straw 04/22/2024 1:23 PM CDT [facility] Clarity UA Clear Clear 04/22/2024 1:23 PM CDT [facility] Glucose UA Normal Normal 04/22/2024 1:23 PM CDT [facility] Bilirubin UA Negative Negative 04/22/2024 1:23 PM CDT [facility] Ketone UA Negative Negative 04/22/2024 1:23 PM CDT [facility] Specific Hurley UA 1.008 1.005 - 1.030 04/22/2024 1:23 PM CDT [facility] Blood UA Negative Negative 04/22/2024 1:23 PM CDT [facility] pH UA 5.0 5.0 - 9.0 pH 04/22/2024 1:23 PM CDT [facility] Protein UA Negative Negative 04/22/2024 1:23 PM CDT [facility] Urobilinogen UA Normal Normal mg/dL 04/22/2024 1:23 PM CDT [facility] Nitrite UA Negative Negative 04/22/2024 1:23 PM CDT [facility] Leukocyte UA Negative Negative 04/22/2024 1:23 PM CDT [facility] Urine Microscopy Urine microscopy not indicated 04/22/2024 1:23 PM CDT [facility] Reflex Status Culture not indicated 04/22/2024 1:23 PM CDT [facility] Urine URINE SPECIMEN OBTAINED BY CLEAN CATCH PROCEDURE / Unknown Collection / Unknown 04/22/2024 12:21 PM CDT 04/22/2024 1:16 PM CDT Narrative [facility] - 04/22/2024 1:23 PM CDT Nancy Carroll PA-C LAB - URINALYSIS OR DERABLES [facility] [address] [place] [address] * FL Ugi Series (03/18/2024 9:48 AM CDT) Only the most recent of3 resultswithin the time period is included. Anatomical Region Laterality Modality Abdomen Radiographic Gabrielle ging 03/18/2024 10:2 6 AM CDT Impressions 03/18/2024 4:55 PM CDT IMPRESSION: Postoperative changes from a gastric bypass. Unremarkable exam. > Interpreting Provider: Mario Joe MD on 03/18/2024 4:55 PM Narrative 03/18/2024 4:55 PM CDT PROCEDURE: FL UGI SERIES, DATE/TIME OF EXAM: 03/18/2024 9:51 AM, LOCATION 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 FLUOROSCOPY DOSE: 1.91 mGy Reference air kerma (ka,r). FLUOROSCOPY TIME: 1.07 minutes; Number of images: TECHNIQUE: Fluoroscopic and overhead images were obtained using double contrast and single contrast technique while the patient ingested contrast. FINDINGS: The patient's swallowing function was normal. Esophageal contour and caliber are normal. There is no esophageal mass, ulcer, or stricture. The esophageal motility was normal. There was passage of contrast through a normal gastroesophageal junction. There is no hiatal hernia. Postoperative changes from gastric bypass are noted. The visible portions of the stomach were normal. Reflux was not seen without or with provocative maneuvers. Procedure Note Mario Joe MD - 03/18/2024 PROCEDURE: FL UGI SERIES, DATE/TIME OF EXAM: 03/18/2024 9:51 AM, LOCATION 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 FLUOROSCOPY DOSE: 1.91 mGy Reference air kerma (ka,r). FLUOROSCOPY TIME: 1.07 minutes; Number of images: TECHNIQUE: Fluoroscopic and overhead images were obtained using double contrast and single contrast technique while the patient ingested contrast. FINDINGS: The patient's swallowing function was normal. Esophageal contour and caliber are normal. There is no esophageal mass, ulcer, or stricture.The esophageal motility was normal. There was passage of contrast through a normal gastroesophageal junction. There is no hiatal hernia.Postoperative changes from gastric bypass are noted. The visible portions of thestomach were normal. Reflux was not seen without or with provocative maneuvers. IMPRESSION: Postoperative changes from a gastric bypass. Unremarkable exam. > Interpreting Provider: Mario Joe MD on 03/18/2024 4:55 PM Richelle Bolton DIESEL LOCOMOTIVE CRANE OPERATOR-HEALTH ASSISTANT FLUOROSCOPY ORDERABLES * VITAMIN D 25-HYDROXY (03/10/2024 3:16 PM CDT) Only the most recent of4 resultswithin the time period is included. Vitamin D, 25 Hydroxy 34.1 30.0 - 100.0 ng/mL [facility] INSURANCE BILL Comment: Vitamin D deficiency has been defined by the [place] of Medicine and an Endocrine Society practice guideline as a level of serum 25-OH vitamin D less than 20 ng/mL (1,2). The Endocrine Society went on to further define vitamin D insufficiency as a level between 21 and 29 ng/mL (2). 1. IOM ([place] of Medicine). 2010. Dietary reference intakes for calcium and D. [place]: The National Academies Press. 2. Spencer MF, Nirali CATALAN, Aguilar BARON, et al. Evaluation, treatment, and prevention of vitamin D deficiency: an Endocrine Society clinical practice guideline. JCEM. 2010; 96(7):1911-30. Blood BLOOD SPECIMEN / Unknown 03/10/2024 3:16 PM CDT 03/10/2024 Narrative Resulting Agency Comment Lab Testing performed at: [facility] [address] [id number] Richelle Bolton APRN-HEALTH ASSISTANT LAB - CHEMIS TRY ORDERABLES [facility] INSURANCE BILL [address] [place] [address] * (ABNORMAL) IRON + TIBC PANEL (03/10/2024 3:16 PM CDT) Only the most recent of2 resultswithin the time period is included. TIBC 407 250 - 450 ug/dL [facility] INSURANCE BILL UIBC 366 118 - 369 ug/dL [facility] INSURANCE BILL Iron 41 27 - 139 ug/dL [facility] INSURANCE BILL Iron Saturation 10(L) 15 - 55 % [facility] INSURANCE BILL Blood BLOOD SPECIMEN / Unknown 03/10/2024 3:16 PM CDT 03/10/2024 Narrative Resulting Agency Comment Lab Testing performed at: [facility] [address] [place] [id number] Richelle Bolton APRN-HEALTH ASSISTANT LAB - CHEMIS TRY ORDERABLES Performing Organization Address City/[facility]/ZIP Co de Phone Number [facility] [address] [place] [address] * FOLATE (03/10/2024 3:16 PM CDT) Only the most recent of2 resultswithin the time period is included. Folate >20.0 >3.0 ng/mL [facility] Comment: A serum folate concentration of less than 3.1 ng/mL is considered to represent clinical deficiency. Blood BLOOD SPECIMEN / Unknown 03/10/2024 3:16 PM CDT 03/10/2024 Narrative Resulting Agency Comment Lab Testing performed at: [facility] [address] [facility] [id number] Richelle Bolton [facility] LAB - CHEMIS TRY ORDERABLES Performing Organization Address [facility] de Phone Number [facility] INSURANCE BILL [address] [place] [address] * (ABNORMAL) VITAMIN K1 (03/10/2024 3:14 PM CDT) Only the most recent of3 resultswithin the time period is included. Vitamin K1 2.30(H) 0.10 - 2.20 ng/mL [facility] INSURANCE BILL Blood BLOOD SPECIMEN / Unknown 03/10/2024 3:14 PM CDT 03/10/2024 Narrative [facility] INSURANCE BILL - 03/17/2024 2:08 PM CDT Test(s) [id number]-[id number] K1 was developed and its performance characteristics determined by [facility]. It has not been cleared or approved by the Food and Drug Administration. Performed at: 02 - [address] [id number] Curator Herbarium: Nancy Camilo MD, Phone: [phone] Richelle Bolton [facility] LAB - CHEMIS TRY ORDERABLES Performing Organization Address City/[facility] Co de Phone Number [facility] INSURANCE BILL [address] [place] [address] * ZINC BLOOD (03/10/2024 3:14 PM CDT) Only the most recent of3 resultswithin the time period is included. Zinc, Plasma or Serum 70 44 - 115 ug/dL [facility] Comment:Detection Limit = 5 Blood BLOOD SPECIMEN / Unknown 03/10/2024 3:14 PM CDT 03/10/2024 Narrative [facility] - 03/17/2024 2:08 PM CDT Test(s) [id number], Plasma or Serum was developed and its performance characteristics determined by [facility]. It has not been cleared or approved by the Food and Drug Administration. Performed at: - [address] [id number] Curator Herbarium: Nancy Camilo MD, Phone: [phone] Resulting Agency Comment Lab Testing performed at: [address] [id number] Richelle Bolton APRN-HEALTH ASSISTANT LAB - CHEMIS TRY ORDERABLES [facility] INSURANCE BILL [address] [place] [address] * VITAMIN A (03/10/2024 3:14 PM CDT) Only the most recent of3 resultswithin the time period is included. Vitamin A 59.9 22.0 - 69.5 ug/dL [facility] Comment: Reference intervals for vitamin A determined from [facility] internal studies. Individuals with vitamin A less than 20 ug/dL are considered vitamin A deficient and those with serum concentrations less than 10 ug/dL are considered severely deficient. This test was developed and its performance characteristics determined by [facility] It has not been cleared or approved by the Food and Drug Administration. Blood BLOOD SPECIMEN / Unknown 03/10/2024 3:14 PM CDT 03/10/2024 Narrative [facility] - 03/17/2024 2:08 PM CDT Performed at: [address] [id number] Curator Herbarium: Nancy Camilo MD, Phone: [phone] Resulting Agency Comment Lab Testing performed at: [address] [id number] Richelle Bolton APRN-ANDRÉS LAB - CHEMIS TRY ORDERABLES Performing Organization Address City/[facility] Co de Phone Number [facility] INSURANCE BILL [address] [place] [address] * VITAMIN E (03/10/2024 3:14 PM CDT) Only the most recent of3 resultswithin the time period is included. Vitamin E Alpha Tocopherol 14.5 9.0 - 29.0 mg/L [facility] Vitamin E Gamma Tocopherol 0.9 0.5 - 4.9 mg/L [facility] Comment: Reference intervals for alpha and gamma-tocopherol determined from National Health and Nutrition Examination Survey, 2713-4654. Individuals with alpha-tocopherol levels less than 5.0 mg/L are considered vitamin E deficient. Blood BLOOD SPECIMEN / Unknown 03/10/2024 3:14 PM CDT 03/10/2024 Narrative [facility] - 03/17/2024 2:08 PM CDT Test(s) [id number]-Vhgejln E(Alpha Tocopherol); 758708- Vitamin E(Gamma Tocopherol) was developed and its performance characteristics determined by [facility]. It has not been cleared or approved by the Food and Drug Administration. Performed at: 02 - [address] [id number] Curator Herbarium: Nancy Camilo MD, Phone: [phone] Resulting Agency Comment Lab Testing performed at: [address] [id number] Richelle WATT LAB - CHEMIS TRY ORDERABLES Performing Organization Address City/[facility]/ZIP Co de Phone Number [facility] INS[facility] B[facility] [address] [place] [address] * VITAMIN B1 (03/10/2024 3:14 PM CDT) Only the most recent of3 resultswithin the time period is included. Vitamin B1 Whole Blood 142.2 66.5 - 200.0 nmol/L [facility] INS[facility] Blood BLOOD SPECIMEN / Unknown 03/10/2024 3:14 PM CDT 03/10/2024 Narrative [facility] INSURANCE BILL - 03/17/2024 2:08 PM CDT Test(s) 460403-Kwc. B1, Whole Blood was developed and its performance characteristics determined by [facility]. It has not been cleared or approved by the Food and Drug Administration. Performed at: - [address] [id number] Curator Herbarium: Nancy Camilo MD, Phone: [phone] Resulting Agency Comment Lab Testing performed at: [address] [id number] Richelle Bolton APRN-HEALTH ASSISTANT LAB - CHEMIS TRY ORDERABLES Performing Organization Address [facility] Co de Phone Number [facility] INSURANCE BILL [address] [place] [address] * PTH INTACT (03/10/2024 3:14 PM CDT) Only the most recent of3 resultswithin the time period is included. PTH Intact 36 15 - 65 pg/mL [facility] INSURANCE BILL Blood BLOOD SPECIMEN / Unknown 03/10/2024 3:14 PM CDT 03/10/2024 Narrative [facility] INSURANCE BILL - 03/17/2024 2:08 PM CDT Performed at: [address] [id number] Curator Herbarium: Braden Dutton PhD, Phone: [phone] Resulting Agency Comment Lab Testing performed at: [facility] [id number] Richelle Bolton APRN-HEALTH ASSISTANT LAB - CHEMIS TRY ORDERABLES Performing Organization Address City/[facility]/ZIP Co de Phone Number [facility] [address] [place] [address] * COPPER BLOOD (03/10/2024 3:14 PM CDT) Only the most recent of3 resultswithin the time period is included. Copper 119 80 - 158 ug/dL [facility] INSURANCE BILL Comment:Detection Limit = 5 Blood BLOOD SPECIMEN / Unknown 03/10/2024 3:14 PM CDT 03/10/2024 Narrative [facility] INSURANCE BILL - 03/17/2024 2:08 PM CDT Test(s) 424512-Rkmyzf, Serum or Plasma was developed and its performance characteristics determined by [facility]. It has not been cleared or approved by the Food and Drug Administration. Performed at: 02 - [address] [id number] Curator Herbarium: Nancy Camilo MD, Phone: [phone] Resulting Agency Comment Lab Testing performed at: [address] [id number] Richelle Bolton APRN-HEALTH ASSISTANT LAB - CHEMIS TRY ORDERABLES [facility] INSURANCE BILL [address] [place] [address] * (ABNORMAL) CBC W/O DIFFERENTIAL (03/10/2024 3:14 PM CDT) Only the most recent of3 resultswithin the time period is included. WBC 5.1 3.4 - 10.8 x10E3/uL [facility] INSURANCE BILL RBC 3.27(L) 3.77 - 5.28 x10E6/uL [facility] INSURANCE BILL Hemoglobin 10.0(L) 11.1 - 15.9 g/dL [facility] INSURANCE BILL Hematocrit 31.5(L) 34.0 - 46.6 % [facility] INSURANCE BILL MCV 96 79 - 97 fL [facility] INSURANCE BILL MCH 30.6 26.6 - 33.0 pg [facility] INSURANCE BILL MCHC 31.7 31.5 - 35.7 g/dL [facility] INSURANCE BILL RDW 12.5 11.7 - 15.4 % [facility] INSURANCE BILL Platelet Count 301 150 - 450 x10E3/uL [facility] INSURANCE BILL Blood BLOOD SPECIMEN / Unknown 03/10/2024 3:14 PM CDT 03/10/2024 Narrative [facility] INSURANCE BILL - 03/17/2024 2:08 PM CDT Performed at: [address] [place] [id number] Curator Herbarium: Braden Dutton PhD, Phone: [phone] Resulting Agency Comment Lab Testing performed at: [facility] [id number] Richelle THOMSONHEALTH ASSISTANT LAB - HEMATO LOGY ORDERABLES Performing Organization Address [facility] de Phone Number [facility] INSURANCE BILL [address] [place] [address] * MAGNESIUM BLOOD (03/10/2024 3:14 PM CDT) Only the most recent of3 resultswithin the time period is included. Magnesium 2.1 1.6 - 2.3 mg/dL [facility] INSURANCE BILL Blood BLOOD SPECIMEN / Unknown 03/10/2024 3:14 PM CDT 03/10/2024 Narrative [facility] INSURANCE BILL - 03/17/2024 2:08 PM CDT Performed at: [address] [id number] Curator Herbarium: Braden Dutton PhD, Phone: [phone] Resulting Agency Comment Lab Testing performed at: [facility] [id number] Richelle THOMSONHEALTH ASSISTANT LAB - CHEMIS TRY ORDERABLES Performing Organization Address [facility] de Phone Number [facility] INSURANCE BILL [address] [place] [address] * (ABNORMAL) VITAMIN B12 (03/10/2024 3:14 PM CDT) Only the most recent of3 resultswithin the time period is included. Vitamin B12 1,277(H) 232 - 1,245 pg/mL [facility] INSURANCE BILL Blood BLOOD SPECIMEN / Unknown 03/10/2024 3:14 PM CDT 03/10/2024 Narrative [facility] INSURANCE BILL - 03/17/2024 2:08 PM CDT Performed at: [facility] [address] [id number] Curator Herbarium: Braden Dutton PhD, Phone: [phone] Resulting Agency Comment Lab Testing performed at: [address] [id number] Richelle Bolton APRN-HEALTH ASSISTANT LAB - CHEMIS TRY ORDERABLES Performing Organization Address [facility] de Phone Number [facility] INSURANCE BILL [address] [place] [address] * (ABNORMAL) FERRITIN (03/10/2024 3:14 PM CDT) Only the most recent of3 resultswithin the time period is included. Ferritin 14(L) 15 - 150 ng/mL [facility] INSURANCE BILL Blood BLOOD SPECIMEN / Unknown 03/10/2024 3:14 PM CDT 03/10/2024 Narrative [facility] INSURANCE BILL - 03/17/2024 2:08 PM CDT Performed at: [address] [id number] Curator Herbarium: Braden Dutton PhD, Phone: [phone] Resulting Agency Comment Lab Testing performed at: [address] [id number] Richelle Bolton APRN-HEALTH ASSISTANT LAB - CHEMIS TRY ORDERABLES Performing Organization Address [facility] de Phone Number [facility] INSURANCE BILL [address] [place] [address] * (ABNORMAL) BASIC METABOLIC PANEL (CALCIUM TOTAL) (09/02/2023 2:24 AM DIRECTOR SEMICONDUCTOR) Only the most recent of3 resultswithin the time period is included. Glucose 177(H) 70 - 105 mg/dL 09/02/2023 2:57 AM DIRECTOR SEMICONDUCTOR [facility] Sodium 135(L) 136 - 145 mmol/L 09/02/2023 2:57 AM DIRECTOR SEMICONDUCTOR [facility] Potassium 4.5 3.5 - 5.1 mmol/L 09/02/2023 2:57 AM DIRECTOR SEMICONDUCTOR [facility] Chloride 102 98 - 107 mmol/L 09/02/2023 2:57 AM DIRECTOR SEMICONDUCTOR [facility] CO2 24 22 - 29 mmol/L 09/02/2023 2:57 AM DIRECTOR SEMICONDUCTOR [facility] Calcium 8.3(L) 8.4 - 10.4 mg/dL 09/02/2023 2:57 AM DIRECTOR SEMICONDUCTOR [facility] Anion Gap 9 6 - 16 mmol/L 09/02/2023 2:57 AM DIRECTOR SEMICONDUCTOR [facility] BUN 15 7 - 26 mg/dL 09/02/2023 2:57 AM DIRECTOR SEMICONDUCTOR [facility] Creatinine 0.83 0.57 - 1.11 mg/dL 09/02/2023 2:57 AM [facility] eGFR by CKD-EPI 73(L) >=90 mL/min/1.7 3 m2 09/02/2023 2:57 AM DIRECTOR SEMICONDUCTOR [facility] Blood BLOOD SPECIMEN / Unknown Venipuncture / Unknown 09/02/2023 2:24 AM DIRECTOR SEMICONDUCTOR 09/02/2023 2:32 AM DIRECTOR SEMICONDUCTOR Silvano Gurrola MD LAB - CHEMISTRY ORDE RABLES Performing Organization Address City/[facility] Co de Phone Number [facility] [address] [place] [address] * (ABNORMAL) GLUCOSE - POINT OF CARE (09/01/2023 11:42 PM DIRECTOR SEMICONDUCTOR) Only the most recent of2 resultswithin the time period is included. [facility] Glucose WB/POC 146(H) 70 - 106 mg/dL 09/01/2023 11:47 PM DIRECTOR SEMICONDUCTOR [facility] Specimen Type Cap Fingerstick 2023 11:47 PM DIRECTOR SEMICONDUCTOR [facility] Blood BLOOD SPECIMEN / Unknown 09/01/2023 11:42 PM DIRECTOR SEMICONDUCTOR 09/01/2023 11:47 PM DIRECTOR SEMICONDUCTOR Silvano Gurrola MD LAB - POINT OF CARE ORDERABLES Performing Organization Address [facility] Co de Phone Number [facility] [address] [place] [address] * ETT LINE PERFORMABLE (09/01/2023 11:08 AM DIRECTOR SEMICONDUCTOR) Narrative [place]eland, Moreno, DIESEL LOCOMOTIVE CRANE OPERATOR-FRAME TABLE OPERATOR - 09/01/2023 11:08 AM DIRECTOR SEMICONDUCTOR [place], Moreno, DIESEL LOCOMOTIVE CRANE OPERATOR-FRAME TABLE OPERATOR 09/01/2023 11:08 AM Endotracheal Tube Placement: Patient Location: OR. Intubation Event Date/Time: 09/01/2023 10:53 AM Procedure: intubation ([id number]). Procedure Section: Sedation: under general anesthesia. Indications for Airway Management: anesthesia Induction: standard IV Patient Position: sniffing Mask Ventilation: easy with oral airway. Blade Type: Moon Blade Size: 3 Laryngoscopy View: grade 1 (full cords) Intubation Adjuncts: stylet Tube: endotracheal tube Placement: oral Tube type: cuff - inflated Tube Size (MM): 7 Depth of Insertion (CM): 22 Measured From: lips Cuff volume (mL): 8 Cuff Inflated With: air Number of Attempts: 1. Placement Verified By: direct visualization, bilateral breath sounds, chest auscultation and CO2 monitor Tube secured with: adhesive tape. Dentition unchanged? Yes Difficult Airway? No. Procedure Start Time: 09/01/2023 10:53 AM. Staff Section Anesthesia Provider: Moreno Ha APRN-CRNA, Performed the procedure Flip Schultz DO GENERAL ANESTHESIA O RDERABLES * PATHOLOGY TISSUE EXAM (STL) (05/19/2023 12:00 PM DIRECTOR SEMICONDUCTOR) Case Report Surgical Pathology Report Case: [id number] Authorizing Provider: Silvano Gurrola MD Collected: 05/19/2023 12:00 PM Ordering Location: [facility] Fina Operative Received: 05/19/2023 01:47 PM Pathologist: Irma Iarheta MD Specimen: Gallbladder, GALLBLADDER 05/21/2023 10:47 AM DIRECTOR SEMICONDUCTOR [facility] Final Diagnosis Gallbladder, cholecystectomy: -- Mild chronic inflammation and cholelithiasis 05/21/2023 10:47 AM DIRECTOR SEMICONDUCTOR [facility] Gross Description Received in formalin in a single container, labeled Moira Cordoba, gallbladder, is a 5 x 2.5 cm gallbladder. The serosa is unremarkable. Sections of the gallbladder show a green velvety, unremarkable mucosa. The gallbladder wall measures 0.2 cm in thickness. Within the gallbladder is green-yellow bile and multiple yellow round gallstones, ranging from 0.1 cm to 0.6 cm. There are multiple gallstones lodged in the cystic duct. Mathematics Teacher sections are submitted in cassette A1. CH/tc 05/21/2023 10:47 AM [facility] Microscopic Description Microscopic evaluation supports the diagnosis. 05/21/2023 10:47 AM [facility] Disclaimer All histochemical and/or immunohistochemical results are interpreted with controls that demonstrate appropriate staining reactions before reporting results. Note on use of immunocytochemistry reagents: This test was developed and its performance characteristic determined by [facility], Department of Laboratory Medicine. It has not been cleared or approved by the U.S. Food and Drug Administration (FDA). The FDA has determined that such clearance or approval is not necessary. The test is used for clinical purpose. It should not be regarded as investigational or for research. This laboratory is certified to perform high complexity testing. The performance characteristics of the IHC/ANDERS assays have been validated on formalin-fixed paraffin embedded tissues only. The assays have not been validated on decalcified tissues. Results should be interpreted with caution. 05/21/2023 10:47 AM [facility] Embedded Images 05/21/2023 10:47 AM [facility] Pathology/Cytolo gy ENTIRE GALLBLADDER / Unknown 05/19/2023 12:00 PM DIRECTOR SEMICONDUCTOR 05/19/2023 1:47 PM DIRECTOR SEMICONDUCTOR Silvano Gurrola MD LAB - PATHOLOGY/CYTO LOGY ORDERABLES [facility] [address] [place] [address] * ETT LINE PERFORMABLE (05/19/2023 11:25 AM DIRECTOR SEMICONDUCTOR) Narrative Ashley Gray APRN-FRAME TABLE OPERATOR - 05/19/2023 11:25 AM DIRECTOR SEMICONDUCTOR Ashley Gray APRN-CRNA 05/19/2023 11:27 AM Endotracheal Tube Placement: Patient Location: OR. Intubation Event Date/Time: 05/19/2023 11:13 AM Procedure: intubation ([id number]). Procedure Section: Sedation: under general anesthesia. Indications for Airway Management: anesthesia Induction: standard IV Patient Position: sniffing and supine Mask Ventilation: difficult and required 2 people (2 handed). Blade Type: Tinoco Blade Size: 2 Laryngoscopy View: grade 2 (partial cords) Intubation Adjuncts: stylet Tube: endotracheal tube Placement: oral Tube type: cuff - inflated Tube Size (MM): 7 Depth of Insertion (CM): 22 Measured From: teeth Cuff volume (mL): 10 Cuff Inflated With: air Number of Attempts: 1. Placement Verified By: direct visualization, bilateral breath sounds, chest auscultation and CO2 monitor Tube secured with: adhesive tape. Dentition unchanged? Yes Difficult Airway? No. Procedure Start Time: 05/19/2023 11:13 AM. Staff Section Anesthesia Provider: Ashley Gray APRN-YVETTE, Performed the procedure Donnell Currie MD GENERAL ANESTHESIA O RDERABLES * EKG 12-LEAD (05/19/2023 9:00 AM DIRECTOR SEMICONDUCTOR) Ventricular Rate 83 BPM [facility] Atrial Rate 83 BPM [facility] P-R Interval 158 ms [facility] QRS Duration ms 68 ms [facility] Q-T Interval ms 362 ms [facility] QTC Calculation (Bezet) 425 ms [facility] Calculated P Gervais 32 degrees [facility] Calculated R Gervais 11 degrees [facility] Calculated T Gervais 29 degrees [facility] Interpretation EKG Normal sinus rhythm Low voltage QRS Borderline ECG No previous ECGs available Confirmed by DEIRDRE THURTSON, GERALD ([id number]) on 05/19/2023 7:56:21 PM [facility] 05/19/2023 9:00 AM DIRECTOR SEMICONDUCTOR 05/19/2023 7:56 PM DIRECTOR SEMICONDUCTOR Masha Johnson DO ECG ORDERABLES [facility] * US ABDOMEN LIMITED (04/08/2023 10:56 AM CDT) Anatomical Region Laterality Modality Abdomen Ultrasound 04/08/2023 11:3 8 AM CDT Impressions 04/08/2023 11:53 AM CDT IMPRESSION: Cholelithiasis without cholecystitis. Edited by Martita Negro on 04/08/2023 11:45 AM > Interpreting Provider: Whitney De La Cruz MD on 04/08/2023 11:53 AM Narrative 04/08/2023 11:53 AM CDT PROCEDURE: US ABDOMEN LIMITED DATE/TIME OF EXAM: 04/08/2023 10:56 AM CLINICAL INFORMATION: None relevant/not provided if blank. Indication: R10.11: Right upper quadrant pain. Additional History: COMPARISON: None. TECHNIQUE: Real-time ultrasound of the upper abdomen with DICOM image capture performed by nanotechnology engineering technologist. FINDINGS: The hepatic echotexture is homogeneous without evidence of a focal mass. The liver is normal in size and contour. There is no intrahepatic ductal dilatation. The pancreas is not visualized due to bowel gas. Echogenic cholelithiasis is identified within the gallbladder lumen. No pericholecystic fluid or gallbladder wall thickening seen. The common bile duct is normal in caliber. There is no evidence of ascites or fluid in Morison's pouch. The right kidney measures 10.4 cm. No right-sided hydronephrosis seen. Procedure Note Whitney De La Cruz MD - 04/08/2023 PROCEDURE: US ABDOMEN LIMITED DATE/TIME OF EXAM: 04/08/2023 10:56 AM CLINICAL INFORMATION: None relevant/not provided if blank. Indication: R10.11: Right upper quadrant pain. Additional History: COMPARISON: None. TECHNIQUE: Real-time ultrasound of the upper abdomen with DICOM image capture performed by nanotechnology engineering technologist. FINDINGS: The hepatic echotexture is homogeneous without evidence of a focal mass. The liver is normal in size and contour. There is no intrahepatic ductal dilatation. The pancreas is not visualized due to bowel gas. Echogenic cholelithiasis is identified within the gallbladder lumen. No pericholecystic fluid or gallbladder wall thickening seen. The commonbile duct is normal in caliber. There is no evidence of ascites or fluid in Morison's pouch. The right kidney measures 10.4 cm. No right-sided hydronephrosis seen. IMPRESSION: Cholelithiasis without cholecystitis. Edited by Martita Negro on 04/08/2023 11:45 AM > Interpreting Provider: Whitney De La Cruz MD on 04/08/2023 11:53 AM Brenda Diaz DIESEL LOCOMOTIVE CRANE OPERATOR-HEALTH ASSISTANT US ORDERABLES * PREALBUMIN (03/20/2023 2:18 PM CDT) Only the most recent of2 resultswithin the time period is included. Prealbumin 28 9 - 32 mg/dL [facility] Blood BLOOD SPECIMEN / Unknown 03/20/2023 2:18 PM CDT 03/20/2023 Narrative Resulting Agency Comment [facility]: [facility] [address] [facility] [id number] Brenda Diaz APRN-HEALTH ASSISTANT LAB - CHEMISTRY O RDERABLES [facility] INSURANCE BILL [address] [place] [address] * LAB (11/20/2021) Jaqueline Sibley APRN-HEALTH ASSISTANT SCANNING ONLY * FOLATE RBC (11/14/2021 2:53 PM CDT) Pathologist [facility] Folate RBC >1000 >280 ng/mL RBC [facility] Comment: Test Performed at: [facility] [id number] MAX SMTIH DO,MPH Blood BLOOD SPECIMEN / Unknown 11/14/2021 2:53 PM CDT 11/14/2021 2:56 PM CDT Jaqueline Sibley DIESEL LOCOMOTIVE CRANE OPERATOR-HEALTH ASSISTANT LAB - GEOVANY TRACIE ORDERABLES Performing Organization Address City/[facility] Co de Phone Number [employer] [facility] [address] [place] [address] * IRON BLOOD (11/14/2021 2:53 PM CDT) Pathologist [facility] Iron 86 45 - 160 mcg/dL [facility] Comment: Test Performed at: [facility] [address] [place] [id number] MAX SMITH DO,MPH Blood BLOOD SPECIMEN / Unknown 11/14/2021 2:53 PM CDT 11/14/2021 2:56 PM CDT Jaqueline Sibley DIESEL LOCOMOTIVE CRANE OPERATOR-HEALTH ASSISTANT LAB - GEOVANY TRACIE ORDERABLES [facility] [address] [place] [id number] * XR KNEE BILAT 3VW (08/10/2019 12:54 PM DIRECTOR SEMICONDUCTOR) Anatomical Region Laterality Modality Lower Extremity Computed Radiogr aphy Narrative 08/10/2019 12:54 PM DIRECTOR SEMICONDUCTOR Stephanie Lynn 08/20/2019 11:40 AM Please see progress notes for result. Max Day MD DIAGNOSTIC IMAGING O [facility] Care Teams Abstract Clerk Relationship Specialty Start Date End Date Shruthi Craig MD [address] [place] [phone] PCP - General 11/26/21
--- OUTSIDE RECORDS SUMMARY | 2024-08-13 08:58 | XMS_ITS ---
Author Organization [facility] Address [address] [facility] [place] [address] Care Team Providers Care Commercial Credit Portfolio Manager Name Role Phone Shruthi Craig MD Primary Care Provider [phone] Active Problems Problem Noted Date Diagnosed Date Cervical cancer 05/24/2024 Depressive disorder 05/24/2024 Foot pain 05/24/2024 Enthesopathy of hip region 05/24/2024 Iron deficiency 03/23/2024 Arthralgia of both knees 10/30/2023 Hiatal hernia 09/01/2023 Primary osteoarthritis of both knees 08/11/2019 Cobalamin deficiency 06/07/2015 Degeneration of lumbar intervertebral disc 06/07 Current Oncology Plans No current plan information found. Past Plans Radiation Treatments * No radiation treatments are documented for this patient in [facility]. Treatments may have been administered in another system. Lifetime Dose Tracking * Chemical Lifetime Dose Automatic Entry Manual Entr y Dose Length Product 2.722 mGy-cm 2.722 mGy-cm 0 mGy-cm
--- OUTSIDE RECORDS SUMMARY | 2024-08-13 08:58 | XMS_ITS ---
Author Organization [facility] Address [address] [facility] [address] [place] [address] Care Team Providers Care Grinding Wheel Operator Name Role Phone zzzzMigration, zzzzProvider Unavailable Unav ailable REASON FOR VISIT EMR-Saji Encounters Encounter Location Date Provider Diagnosis [facility] [address] [facility] [address] [place] [address] 04/27/2023 zzzzProvider zzzzMigration Plan Of Treatment No Information Progress Notes * Moira SCHAEFFERDOB:1945 (79 yo F)Acc No.[id number]:04/27/2023 Patient: Moira ALVARADO :1945 A ge:78 Y S ex:Female Address:[address] [place] [address], [facility] [address] Subjective: * Chief Complaints: * E MR-Saji * Medical History: * Surgical History: * Hospitalization/Major Diagno stic Procedure: * Medications: Objective: * Vitals: * Physical Examination: Assessment: Plan: * Treatment: * Procedure Codes: * * Date:
--- OUTSIDE RECORDS SUMMARY | 2024-08-13 08:58 | XMS_ITS | Referral Summary ---
Author Organization [facility] Address [address] [facility] [place] [address] Care Team Providers Care Assignment Officer Name Role Phone Shruthi Craig MD Primary Care Provider [phone] Source Comments [facility],non-owned Affiliates and Associated Physician Practices is amultiple site organization consisting of ambulatory clinics and hospital sitesin [place], [place], [place] and [place]. This disclosure is being madepursuant to the Care Everywhere program and may not contain all information available regarding this patient. Last updated 18.[facility] Only [place] Encounters Date Type Department Care Team Description 07/25/2024 Refill [facility] Weight Management Services [address] [facility], [facility] [address] [place] [address] Richelle Bolton APRN-ANDRÉS Refill Request 05/24/2024 Travel 05/24/2024 2:00 PM RN MILITARY Office Visit [facility] - Otolaryngology [id number] [place] [address] [address] [place] [phone] Noel Burgess MD Nasal vestibulitis (Primary Dx); Impacted cerumen of right ear; Presbylarynges; Xerostomia; Sleep talking from Last 3 Months Allergies Active Allergy Reactions Criticality Noted Date [...] EVERY DAY 30 capsule 5 01/20/2024 07/26/19 Discontinued Active Problems Problem Noted Date Diagnosed [...] Recorded Patient Health Questionnaire-2 Score 0 04/09/2024 [facility] - Occupational Stress [...] place to sleep or slept in a usp (including now)? No 09/01/2023 Sex and Gender Information Value Date Recorded Sex Assigned at Female 01/22/2024 6:45 AM CDT Gender Identity Not on file Sexual Orientation Not on file Last Filed Vital Signs Vital Sign Reading Time Taken Comments Blood Pressure 111/52 05/24/2024 1:50 PM RN MILITARY Pulse 85 05/24/2024 1:50 PM RN MILITARY Temperature 36.8 C (98.3 F) 04/22/2024 11:20 AM CDT Respiratory Rate 18 04/22/2024 11:2 0 AM CDT Oxygen Saturation 100% 05/24/2024 1:50 PM RN MILITARY Inhaled Oxygen Concentration - - Weight 61.1 kg (134 lb 12.8 oz) 05/24/2024 1:50 PM RN MILITARY Height 149.9 cm (4' 11 ) 05/24/2024 1:50 PM RN MILITARY Body Mass Index 27.23 05/24/2024 1:50 PM RN MILITARY Functional Status Functional Status Response Date of Assess ment Is person deaf or have serious hearing difficult y? No 09/01/2023 Is person blind or have serious difficulty seein g? No 09/01/2023 Does person have serious dif ficulty walking/climbing stairs? No 09/01/2023 Does person have difficulty dressing/bathing? No 09/01/2023 Does person have difficulty doing errands alone? No 09/01/2023 Cognitive Status Response Date of Assessm ent Does person have difficulty concentrating/remembering/making decisions? No 09/01/2023 Plan of Treatment Upcoming Encounters Date Type Department Care Team (Late st Contact Info) Description 08/23/2024 1:00 PM RN MILITARY Office Visit [facility] - Otol[facility]ology [address] [phone] [place] [address] [address] 09/01/2024 12:30 PM RN MILITARY Office Visit [facility] Weight Management Services [address] [facility] [address] [place] [address] Richelle Bolton, COAL INSPECTOR-COAT OPERATOR INSULATOR [address] [address] [facility] [address] [place] [address] Advance Directives * Full Code (Latest Code Status on File) Date Activated Date Inactivated Comments 09/01/2023 2:53 PM 09/02/2023 9:46 PM Care Teams Assignment Officer Relationship Specialty Start Date End Date Shruthi Craig MD [address] [place] [address] PCP - General 11/26/21
--- OUTSIDE RECORDS SUMMARY | 2024-08-13 08:59 | XMS_ITS ---
Author Organization [facility] Address [address] [facility] [address] [place] [address] Care Team Providers Care Practical Ministries Professor Name Role Phone zzzzMigration, zzzzProvider Unavailable Unav ailable REASON FOR VISIT EMR-Saji Encounters Encounter Location Date Provider Diagnosis [facility] [address] [facility] [address] [place] [address] 04/26/2023 zzzzProvider zzzzMigration Plan Of Treatment No Information Progress Notes * Moira SCHAEFFERDOB:1945 (79 yo F)Acc No.[id number]:04/26/2023 Patient: Moira ALVARADO :1945 A ge:78 Y S ex:Female Address:[address] [place] [address], [facility] [address] Subjective: * Chief Complaints: * E MR-Saji * Medical History: * Surgical History: * Hospitalization/Major Diagno stic Procedure: * Medications: Objective: * Vitals: * Physical Examination: Assessment: Plan: * Treatment: * Procedure Codes: * * Date:
== END 2024-08-13 08:47 | disposition home or self-care (01) ==
PROVIDERS: PCP Internal Medicine; Visit Provider Internal Medicine
DX: I08.1 Rheumatic disorders of both mitral and tricuspid valves (principal); I27.20 Pulmonary hypertension, unspecified; I10 Essential (primary) hypertension
CPT/HCPCS: 93306

== ENCOUNTER 2024-08-18 10:46 | Outpatient (CLI) | payer MEDICARE, SELFPAY ==
--- NOTE | ~2024-08-18 | MR_ITS ---
EXAMINATION: MR lumbar spine wo con DATE: 08/18/2024 11:25 INDICATION: Low back pain. TECHNIQUE: Magnetic resonance imaging (MRI) of the lumbar spine was performed without intravenous con trast. Sequences included sagittal T2-weighted FSE, sagittal T2-weighted FS FSE, sagittal T1-weighted FSE, and axial T2-weighted FSE. COMPARISON: Lumbar spine MRI 10/24/2021 FINDINGS: There is thoracolumbar levoscoliosis. There is 16 degrees dextroscoliosis of lumbar spine. There is mild chronic anterior wedging of T11 and T12 vertebral bodies. There is 3 mm retrolisthesis of L5 on S1. There is severely decreased disc height from T10-T11 through L5-S1. There is ligamentum flavum hypertrophy at the disc levels from L1-L2 through L4-L5. The distal spinal cord signal intensi ty is normal. The conus medullaris is at L2. The following disc levels are specifically discussed: L1-L2: The disc is bulging. There is moderate bilateral facet joint osteoarthritis. There is mild camron ateral neural foraminal stenosis. There is mild central canal stenosis. L2-L3: There is a right central extrusion. There is severe right and moderate left facet joint osteoa rthritis. There is mild bilateral neural foraminal stenosis. There is mild central canal stenosis. L3-L4: The disc is bulging. There is severe bilateral facet joint osteoarthritis. There is mild bilat eral neural foraminal stenosis. There is mild central canal stenosis. L4-L5: The disc is bulging. There is severe bilateral facet joint osteoarthritis. There is mild bilat eral neural foraminal stenosis. There is mild central canal stenosis. L5-S1: The disc is bulging. There is severe bilateral facet joint osteoarthritis. There is moderate b ilateral neural foraminal stenosis. There is mild central canal stenosis. IMPRESSION: 1. Severe thoracic and lumbar spondylosis, stable from 10/24/2021. 2. Lumbar dextroscoliosis. Reviewed, dictated and finalized at location A. R MACHINE OPERATOR
== END 2024-08-18 10:47 | disposition home or self-care (01) ==
LOC: MICIMG 10:47
PROVIDERS: PCP Internal Medicine; Visit Provider Nurse Practitioner Family
DX: M47.894 Other spondylosis, thoracic region (principal); M47.896 Other spondylosis, lumbar region
CPT/HCPCS: 72148